=== PATIENT | male | born 1980 | race Caucasian/White ===

== ENCOUNTER 2019-08-15 18:26 | Inpatient (IN) ==
[2019-08-15] MEDS ORDERED: NS 1,000 ML IV ONE ×2 (18:56→20:39)
[2019-08-15] MEDS ORDERED: ASPIRIN PO ONE (19:02)
[2019-08-15] MEDS ORDERED: NITROGLYCERIN TOP ONE (19:03)
--- NOTE | 2019-08-15 19:09 | PROVIDER DOCUMENTATION ---
HPI-Chest Pain - General Chief Complaint: SEPSIS ALERT - D Stated Complaint: N/V, FEVER Time Seen by Provider: 08/15/19 18:41 Source: patient Allergies/Adverse Reactions: Patient Allergies Allergy/AdvReac Type Severity Reaction Status Date / Time iodine Allergy Unknown Verified 08/15/19 20:05 Home Medications: Home Medication List Medication Instructions Recorded Confirmed Last Taken Type Apixaban [Eliquis] 5 mg PO BID 08/15/19 08/15/19 Unknown History Insulin Degludec [Tresiba 200 unit SQ DAILY 08/15/19 08/15/19 Unknown History Flextouch U-200] - History of Present Illness-CP Nature of Presenting Problem: 38 yr old M, hx of DM, presenting with several days hx of chest pain, generalized muscle aches, and viral-symptoms. The pt was initially swabbed and tested positive for Flu b in [place] a week ago; he returned to [place] for work, and states he has not gotten better despite adequate supportive management (Tamiflu and Tylenol, Motrin). The pt also developed a central chest pain that he says felt like it traveled into his back. This acutely worsened today, and was accompanied by nausea and vomiting. Location: reports: central Chest Pain Radiation: reports: back Severity in ED: moderate Onset/Duration: 1 hour ago Timing: still present Context/Activities at Onset: reports: none Modifying Factors: improves with: nothing Associated Symptoms: reports: back pain, nausea, vomiting Aspirin Treatment Today: provided by ED Prior Chest Pain/Cardiac Workup: reports: no prior chest pain Similar Symptoms Previously?: No Review of Systems - Adult - REVIEW OF SYSTEMS - ADULT Constitutional: reports: no symptoms reported Eyes: reports: no symptoms reported Ears, Nose, Mouth & Throat: reports: no symptoms reported Cardiovascular: reports: see HPI, chest pain Respiratory: reports: no symptoms reported Gastrointestinal: reports: nausea, vomiting Genitourinary: reports: no symptoms reported Musculoskeletal: reports: no symptoms reported Neurological: reports: no symptoms reported Psychiatric: reports: no symptoms reported Endocrine: reports: no symptoms reported Past History - Adult - PAST MEDICAL HISTORY-ADULT Review of Records: reports: Nursing Assessment Review Major Childhood Illnesses: reports: denies history Cardiovascular: reports: denies history Endocrine/Immune: reports: Diabetes Diabetes Type: Type 2 - PRIOR SURGERIES/PROCEDURES Surgical/Procedure History: reports: none - SOCIAL HISTORY Smoking: denies Substance Use: denies Living Situation: family Physical Exam-General - PHYSICAL EXAM-ADULT Initial Vital Signs Reviewed: Yes - CONSTITUTIONAL General Appearance: alert, mild distress - EYES Eyes: PERRL/EOMI - HEAD, EARS, NOSE, MOUTH & THROAT HENMT: normocephalic/atraumatic, moist mucous membranes - RESPIRATORY Respiratory: lungs clear, normal breath sounds, other (chest tender to palpation centrally) - GASTROINTESTINAL (ABDOMEN) Abdominal Exam: normal bowel sounds, non tender, soft - SKIN Integumentary: normal color, normal turgor, warm/dry - NEUROLOGIC Neurologic: grossly normal - PSYCHIATRIC Psych/Mental Status: normal mood/affect, oriented x 3 - HEART Score HEART Score: History: Slightly Suspicious HEART Score: ECG: Normal HEART Score: Age: < or = 45 Years HEART Score: Risk Factors for Atherosclerotic Disease: 1 or 2 Risk Factors HEART Score: Troponin: < or = Normal Limit Total HEART Score:: 1 Progress - PLAN OF CARE/RESULTS Progress/Plan/Lab Results: Vital Signs - 8 hr 08/15/19 18:40 08/15/19 18:41 08/15/19 18:45 Temperature Pulse Rate Respiratory Rate Blood Pressure 141/90 O2 Sat by Pulse Oximetry 95 94 L 96 08/15/19 18:51 08/15/19 19:00 08/15/19 19:01 Temperature 98.1 F Pulse Rate 106 H 102 H 106 H Respiratory Rate 30 H 38 H 35 H Blood Pressure 141/90 146/119 O2 Sat by Pulse Oximetry 96 94 L 94 L 08/15/19 19:15 08/15/19 19:30 08/15/19 19:45 Temperature Pulse Rate 102 H 104 H 108 H Respiratory Rate 37 H 26 H Blood Pressure O2 Sat by Pulse Oximetry 95 95 97 08/15/19 19:57 08/15/19 19:59 08/15/19 20:00 Temperature Pulse Rate 105 H 102 H 92 H Respiratory Rate Blood Pressure 161/103 166/104 O2 Sat by Pulse Oximetry 96 96 96 08/15/19 20:01 08/15/19 20:02 08/15/19 20:03 Temperature Pulse Rate 88 86 84 Respiratory Rate Blood Pressure 160/85 151/84 146/92 O2 Sat by Pulse Oximetry 96 96 96 08/15/19 20:05 08/15/19 20:08 08/15/19 20:09 Temperature Pulse Rate 85 84 85 Respiratory Rate Blood Pressure 141/90 141/90 135/90 O2 Sat by Pulse Oximetry 96 96 95 08/15/19 20:12 08/15/19 20:14 08/15/19 20:15 Temperature Pulse Rate 88 85 85 Respiratory Rate Blood Pressure 126/81 112/85 133/77 O2 Sat by Pulse Oximetry 97 96 96 08/15/19 20:16 08/15/19 20:18 08/15/19 20:19 Temperature Pulse Rate 85 85 86 Respiratory Rate Blood Pressure 113/91 120/80 O2 Sat by Pulse Oximetry 96 96 96 08/15/19 20:21 08/15/19 20:23 08/15/19 20:25 Temperature Pulse Rate 86 88 87 Respiratory Rate Blood Pressure 120/80 125/74 117/77 O2 Sat by Pulse Oximetry 96 95 95 08/15/19 20:27 08/15/19 20:29 08/15/19 20:31 Temperature Pulse Rate 88 89 88 Respiratory Rate Blood Pressure 122/76 124/77 116/72 O2 Sat by Pulse Oximetry 95 96 96 08/15/19 20:32 08/15/19 20:33 08/15/19 20:35 Temperature Pulse Rate 89 90 89 Respiratory Rate Blood Pressure 116/72 122/74 O2 Sat by Pulse Oximetry 96 96 95 08/15/19 20:38 08/15/19 20:39 08/15/19 20:42 Temperature Pulse Rate 93 H 92 H 93 H Respiratory Rate Blood Pressure 110/74 118/73 127/76 O2 Sat by Pulse Oximetry 96 96 96 08/15/19 20:43 08/15/19 20:45 08/15/19 20:46 Temperature Pulse Rate 91 H 91 H 92 H Respiratory Rate Blood Pressure 108/73 120/71 O2 Sat by Pulse Oximetry 96 96 96 08/15/19 20:47 08/15/19 20:49 08/15/19 20:51 Temperature Pulse Rate 92 H 94 H 94 H Respiratory Rate Blood Pressure 113/72 118/81 107/70 O2 Sat by Pulse Oximetry 96 96 96 08/15/19 20:53 08/15/19 20:55 08/15/19 20:57 Temperature Pulse Rate 93 H 93 H 94 H Respiratory Rate Blood Pressure 138/86 145/89 134/87 O2 Sat by Pulse Oximetry 96 96 96 08/15/19 20:59 08/15/19 21:00 08/15/19 21:01 Temperature Pulse Rate 93 H 94 H 94 H Respiratory Rate Blood Pressure 141/85 126/91 O2 Sat by Pulse Oximetry 95 95 08/15/19 21:04 08/15/19 21:05 08/15/19 21:08 Temperature Pulse Rate 93 H 93 H 96 H Respiratory Rate Blood Pressure 103/74 127/76 140/94 O2 Sat by Pulse Oximetry 94 L 94 L 95 08/15/19 21:09 08/15/19 21:12 08/15/19 21:14 Temperature Pulse Rate 97 H 95 H 96 H Respiratory Rate Blood Pressure 152/91 148/101 134/104 O2 Sat by Pulse Oximetry 96 94 L 94 L 08/15/19 21:15 08/15/19 21:17 08/15/19 21:20 Temperature Pulse Rate 96 H 96 H 97 H Respiratory Rate Blood Pressure 142/88 128/92 134/77 O2 Sat by Pulse Oximetry 94 L 94 L 94 L 08/15/19 21:21 08/15/19 21:24 08/15/19 21:26 Temperature Pulse Rate 97 H 96 H 96 H Respiratory Rate Blood Pressure 133/83 133/84 124/83 O2 Sat by Pulse Oximetry 94 L 94 L 95 08/15/19 21:27 08/15/19 21:28 08/15/19 21:29 Temperature Pulse Rate 96 H 95 H 95 H Respiratory Rate Blood Pressure 134/85 125/83 O2 Sat by Pulse Oximetry 94 L 94 L 94 L 08/15/19 21:31 08/15/19 21:34 08/15/19 21:35 Temperature Pulse Rate 94 H 94 H 96 H Respiratory Rate Blood Pressure 132/92 134/82 126/88 O2 Sat by Pulse Oximetry 94 L 95 94 L 08/15/19 21:37 08/15/19 21:39 08/15/19 21:46 Temperature Pulse Rate 95 H 98 H 96 H Respiratory Rate Blood Pressure 155/84 128/101 126/80 O2 Sat by Pulse Oximetry 95 94 L 95 08/15/19 21:49 08/15/19 21:52 08/15/19 21:54 Temperature Pulse Rate 96 H 96 H 96 H Respiratory Rate Blood Pressure 141/86 133/86 131/103 O2 Sat by Pulse Oximetry 94 L 93 L 93 L 08/15/19 21:56 08/15/19 21:57 08/15/19 22:00 Temperature Pulse Rate 97 H 99 H 97 H Respiratory Rate Blood Pressure 136/103 130/91 141/91 O2 Sat by Pulse Oximetry 93 L 93 L 93 L 08/15/19 22:01 08/15/19 22:04 08/15/19 22:06 Temperature Pulse Rate 99 H 96 H 96 H Respiratory Rate Blood Pressure 149/80 161/79 130/92 O2 Sat by Pulse Oximetry 94 L 94 L 94 L 08/15/19 22:09 08/15/19 22:11 08/15/19 22:14 Temperature Pulse Rate 94 H 94 H 93 H Respiratory Rate Blood Pressure 141/91 147/85 133/84 O2 Sat by Pulse Oximetry 94 L 94 L 95 08/15/19 22:16 08/15/19 22:17 08/15/19 22:19 Temperature Pulse Rate 96 H 93 H 96 H Respiratory Rate Blood Pressure 139/78 133/90 152/90 O2 Sat by Pulse Oximetry 94 L 94 L 95 08/15/19 22:22 08/15/19 22:23 08/15/19 22:25 Temperature Pulse Rate 95 H 95 H 92 H Respiratory Rate Blood Pressure 139/83 147/86 138/86 O2 Sat by Pulse Oximetry 94 L 95 95 08/15/19 22:27 08/15/19 22:29 Temperature Pulse Rate 92 H 92 H Respiratory Rate Blood Pressure 149/84 147/86 O2 Sat by Pulse Oximetry 97 97 08/15/19 19:27 Influenza Screen - Final Nasopharyngeal Laboratory Results - last 24 hr 08/15/19 08/15/19 08/15/19 18:50 18:54 19:18 WBC RBC Hgb Hct MCV MCH MCHC RDW Std Deviation Plt Count MPV Neut % (Auto) Lymph % (Auto) [place] % (Auto) Eos % (Auto) Baso % (Auto) Neut # (Auto) Lymph # (Auto) [place] # (Auto) Eos # (Auto) Baso # (Auto) Segmented Neutrophils Band Neutrophils Lymphocytes Monocytes Eosinophils Specimen Type ARTERIAL Sample Site L RADIAL pH 7.10 L* pCO2 13 L* pO2 85 HCO3 6.8 L Base Excess -23.1 L Oxyhemoglobin 94.9 L ABG O2 Sat (Calculated) 24.0 H ABG O2 Saturation 96.1 ABG Carboxyhemoglobin 0.60 ABG Methemoglobin 0.8 Diony Test YES A-a O2 Difference 127.0 Total Hemoglobin 18.0 H Lactate 2.00 Liter Flow 3.0 Blood Gas Modality CAN[place]ULA FiO2 % 32.0 Sodium Potassium Chloride Carbon Dioxide Anion Gap BUN Creatinine Estimated GFR/1.73 m2 BUN/Creatinine Ratio Glucose POC Glucose 450 H Calculated Osmolality Calcium Phosphorus Magnesium Total Bilirubin AST ALT Alkaline Phosphatase Creatine Kinase Troponin T Total Protein Albumin Globulin Albumin/Globulin Ratio Urine Source Urine Color Urine Turbidity Urine pH Ur Specific [place] Urine Protein Ur Glucose (Stick) Ur Ketones (Stick) Urine Blood Urine Nitrite Urine Bilirubin Urobilinogen Dipstick Urine Leukocytes Urine WBC (Auto) Urine RBC (Auto) U Epithel Cells (Auto) Urine Bacteria (Auto) Urine Opiates Screen NONE DETECTED Ur Oxycodone Screen NONE DETECTED Ur Methadone, Qual NONE DETECTED Ur Barbiturates Screen NONE DETECTED Ur Phencyclidine Scrn NONE DETECTED Ur Amphetamines Screen NONE DETECTED U Benzodiazepines Scrn NONE DETECTED Urine Cocaine Screen NONE DETECTED U Cannabinoids Screen NONE DETECTED Acetone Level 08/15/19 08/15/19 08/15/19 19:51 19:51 19:51 WBC 14.48 H RBC 6.31 H Hgb 17.9 Hct 52.5 H MCV 83.2 MCH 28.4 MCHC 34.1 RDW Std Deviation 13.0 Plt Count 267 MPV 10.7 H Neut % (Auto) Not Reportable Lymph % (Auto) Not Reportable [place] % (Auto) Not Reportable Eos % (Auto) Not Reportable Baso % (Auto) Not Reportable Neut # (Auto) Not Reportable Lymph # (Auto) Not Reportable [place] # (Auto) Not Reportable Eos # (Auto) Not Reportable Baso # (Auto) Not Reportable Segmented Neutrophils 76 H Band Neutrophils 3 H Lymphocytes 13 L Monocytes 7 Eosinophils 1 Specimen Type Sample Site pH pCO2 pO2 HCO3 Base Excess Oxyhemoglobin ABG O2 Sat (Calculated) ABG O2 Saturation ABG Carboxyhemoglobin ABG Methemoglobin Diony Test A-a O2 Difference Total Hemoglobin Lactate Liter Flow Blood Gas Modality FiO2 % Sodium 129 L Potassium 5.6 H Chloride 88 L Carbon Dioxide 4 L Anion Gap 37 BUN 27 H Creatinine 1.4 H Estimated GFR/1.73 m2 57 BUN/Creatinine Ratio 19 Glucose 492 H* POC Glucose Calculated Osmolality 286 Calcium 8.4 L Phosphorus Magnesium Total Bilirubin 0.16 L AST 23 ALT 16 Alkaline Phosphatase 90 Creatine Kinase 44 Troponin T < 0.010 Total Protein 7.1 Albumin 4.1 Globulin 3.0 Albumin/Globulin Ratio 1.4 Urine Source Urine Color Urine Turbidity Urine pH Ur Specific [place] Urine Protein Ur Glucose (Stick) Ur Ketones (Stick) Urine Blood Urine Nitrite Urine Bilirubin Urobilinogen Dipstick Urine Leukocytes Urine WBC (Auto) Urine RBC (Auto) U Epithel Cells (Auto) Urine Bacteria (Auto) Urine Opiates Screen Ur Oxycodone Screen Ur Methadone, Qual Ur Barbiturates Screen Ur Phencyclidine Scrn Ur Amphetamines Screen U Benzodiazepines Scrn Urine Cocaine Screen U Cannabinoids Screen Acetone Level 08/15/19 08/15/19 08/15/19 19:51 20:39 22:17 WBC RBC Hgb Hct MCV MCH MCHC RDW Std Deviation Plt Count MPV Neut % (Auto) Lymph % (Auto) [place] % (Auto) Eos % (Auto) Baso % (Auto) Neut # (Auto) Lymph # (Auto) [place] # (Auto) Eos # (Auto) Baso # (Auto) Segmented Neutrophils Band Neutrophils Lymphocytes Monocytes Eosinophils Specimen Type Sample Site pH pCO2 pO2 HCO3 Base Excess Oxyhemoglobin ABG O2 Sat (Calculated) ABG O2 Saturation ABG Carboxyhemoglobin ABG Methemoglobin Diony Test A-a O2 Difference Total Hemoglobin Lactate Liter Flow Blood Gas Modality FiO2 % Sodium Potassium Chloride Carbon Dioxide Anion Gap BUN Creatinine Estimated GFR/1.73 m2 BUN/Creatinine Ratio Glucose POC Glucose 414 H Calculated Osmolality Calcium Phosphorus 4.0 Magnesium 2.2 Total Bilirubin AST ALT Alkaline Phosphatase Creatine Kinase Troponin T Total Protein Albumin Globulin Albumin/Globulin Ratio Urine Source CLEAN CATCH Urine Color YELLOW Urine Turbidity CLEAR Urine pH 5.5 Ur Specific [place] 1.033 Urine Protein 70 A Ur Glucose (Stick) >1000 A Ur Ketones (Stick) >150 A Urine Blood SMALL A Urine Nitrite NEGATIVE Urine Bilirubin NEGATIVE Urobilinogen Dipstick NORMAL Urine Leukocytes NEGATIVE Urine WBC (Auto) <10 Urine RBC (Auto) <10 U Epithel Cells (Auto) <10 Urine Bacteria (Auto) NEGATIVE Urine Opiates Screen Ur Oxycodone Screen Ur Methadone, Qual Ur Barbiturates Screen Ur Phencyclidine Scrn Ur Amphetamines Screen U Benzodiazepines Scrn Urine Cocaine Screen U Cannabinoids Screen Acetone Level LARGE A Orders Category Date Time Status Cardiac Monitoring DIRECTED Care 08/15/19 18:56 Active FSBS/Accucheck Result Q1H Care 08/15/19 22:17 Active IV Insertion ORDERED Care 08/15/19 18:56 Completed Notify MD of + Sepsis Screen NOW Care 08/15/19 18:56 Active Notify Physician As Ordered Care 08/15/19 18:56 Active Saline Loc NOW Care 08/15/19 18:57 Active Vital Signs Order Q1H Care 08/15/19 18:57 Active CHEST-1 VIEW [RAD] Stat Exams 08/15/19 18:56 Completed ABG [RESP] Routine Lab 08/15/19 19:18 Completed ABG [RESP] Routine Lab 08/15/19 22:42 Ordered ACETONE SERUM [CHEM] Stat Lab 08/15/19 19:51 Completed BLOOD CULTURE [BLDCUL] Stat Lab 08/15/19 19:27 Results CBC WITH DIFF [HEME] Stat Lab 08/15/19 19:51 Completed CK PROFILE [SP CHEM] Stat Lab 08/15/19 19:51 Completed COMPREHENSIVE METABOLIC PANEL [CHEM] Stat Lab 08/15/19 19:51 Completed INFLUENZA SCREEN A/B Stat Lab 08/15/19 19:27 Completed LACTATE, PLASMA [CHEM] Lab 08/15/19 22:30 Ordered LACTATE, PLASMA [CHEM] Lab 08/16/19 01:00 Uncollected MAGNESIUM [CHEM] Stat Lab 08/15/19 19:51 Completed PHOSPHORUS [CHEM] Stat Lab 08/15/19 19:51 Completed PROTIME WITH INR [COAG] Stat Lab 08/15/19 19:44 Ordered PTT [COAG] Stat Lab 08/15/19 19:44 Ordered TROPONIN T Stat Lab 08/15/19 19:51 Completed TROPONIN T Stat Lab 08/15/19 20:31 Ordered URINALYSIS W/POSS RFLX CULT [URINALYSIS] Stat Lab 08/15/19 20:39 Completed URINE DRUG SCREEN Stat Lab 08/15/19 18:54 Completed 0.9% Sodium Chloride Inj [Ns] 1,000 ml Med 08/15/19 20:39 Discontinued IV 500 mls/hr 0.9% Sodium Chloride Inj [Ns] 1,000 ml Med 08/15/19 18:56 Discontinued IV 999 mls/hr 0.9% Sodium Chloride Inj [Ns] 100 ml Med 08/15/19 20:45 Active Insulin Human Regular [Humulin R] 100 unit IV 6 mls/hr Apixaban [Eliquis] Med 08/16/19 09:00 Ordered 5 mg PO BID Aspirin Med 08/15/19 19:02 Discontinued 325 mg PO NOW ONE D5 1/ Ns + KCl 20 Meq 1,000 ml Med 08/15/19 20:32 Discontinued IV 125 mls/hr Insulin Human Regular [Humulin R] Med 08/15/19 19:51 Discontinued 10 unit IV NOW ONE Levofloxacin 750 mg/D5w [Levaquin 750 mg/D5w] Med 08/15/19 20:17 Discontinued 750 mg in 150 ml IV NOW Metoprolol [Lopressor] Med 08/15/19 19:13 Discontinued 5 mg IV NOW ONE Morphine Med 08/15/19 19:59 Discontinued 4 mg IV NOW ONE Morphine Med 08/15/19 19:52 Discontinued 5 mg IV NOW ONE Nitroglycerin Med 08/15/19 19:03 Discontinued 1 inch TOP NOW ONE Oxygen Device Stat Oth 08/15/19 18:56 Active EKG [EKG] Routine Ther 08/15/19 18:57 Draft Transfer/Admit Order [TRANSFER] Routine Transfer 08/15/19 21:50 Ordered Pt is in DKA, protocol initiated; also tested positive for flu A, also has possible pneumonia developing; has spoken to Dr. Hale who accepts the case for additional management. Result Diagrams: 08/15/19 19:51 08/15/19 19:51 - XRAY 1 XRAY Study: Chest Impression: See EMR Report XRAY Interpretation: possible infiltrate in RLL - CONSULTS/PCP/HOSPITALIST Notification Consult Disposition: Admit Departure - Departure Date of Disposition Decision: 08/15/19 Time of Disposition Decision: 21:48 DIAGNOSIS: DKA (diabetic ketoacidoses) Qualifiers: Diabetes mellitus type: type 2 Diabetes mellitus complication detail: without coma Qualified Code(s): E11.10 - Type 2 diabetes mellitus with ketoacidosis without coma Leukocytosis Qualifiers: Leukocytosis type: bandemia Qualified Code(s): D72.825 - Bandemia Disposition: ADMITTED INPATIENT 09 Certified Medical Emergency: Emergent Condition: Fair Referrals and Follow-Ups: None,PCP [Primary Care Provider] - - Critical Care Note This patient required my direct & personal management of CC.: No Attestation - Physician/ KARLA Attestation Patient care was provided by Advanced Practice Provider:: No The physician spent face to face time with patient:: Yes Advanced Practice Provider documentation review:: Supervising physician onsite and consulted in the evaluation and care of this patient. The physician did have a face to face encounter with the patient.
[2019-08-15] MEDS ORDERED: LOPRESSOR IV ONE (19:13)
[2019-08-15 19:28] LABS: ALLEN TEST YES; BE -23.1 mmoll (-3.0-3.0); BLOOD TYPE ARTERIAL; HCO3-(ACT) 6.8 mmoll (20.0-26.0); METHB 0.8 % (0.0-1.5); O2HB 94.9 % (95.0-99.0); PO2(98.6) 85 mmHg (60-100); SAMPLE BLOOD; SAO2 96.1 % (95.0-100.0)
--- NOTE | 2019-08-15 19:28 | Diag Imaging Result Doc PS360 ---
EXAM: CHEST-1 VIEW - 08/15/2019 HISTORY: possible sepsis TECHNIQUE: Portable AP spine abdomen COMPARISON: None. FINDINGS: Heart size is within normal limits. There is ill-defined infiltrate or atelectasis at the base. The remainder of the lungs appear essentially clear. There is no pleural effusion or pneumothorax identified. There is air noted beneath the left hemidiaphragm which presumably is located in fundus of stomach. IMPRESSION: Ill-defined infiltrate or atelectasis at right base. Electronically signed by Ke Delcid 08/15/2019 7:26 PM
[2019-08-15 19:30] LABS: MODALITY CANNULA; PCO2(98.6) 13 mmHg (35-45)
[2019-08-15] MEDS ORDERED: HUMULIN R IV ONE (19:51)
[2019-08-15] MEDS ORDERED: MORPHINE IV ONE ×2 (19:52→19:59)
[2019-08-15 20:14] LABS: HEMATOCRIT 52.5 % (42.0-52.0); HEMOGLOBIN 17.9 g/dL (14.0-18.0); MCH 28.4 PG (27-31); MCHC 34.1 g/dL (33-37); MCV 83.2 FL (81-99); MPV 10.7 FL (7.4-10.4); PLT 267 X1000 (130-400); RBC 6.31 XMIL (4.7-6.1); WBC 14.48 X1000 (4.8-10.8)
[2019-08-15] MEDS ORDERED: LEVAQUIN 750 MG/D5W 750 MG/150 ML IVPB IV ONE (20:17)
[2019-08-15 20:23] LABS: ACETONE SERUM LARGE (NEGATIVE)
[2019-08-15 20:27] LABS: ALB/GLOB RATIO 1.4; ALBUMIN 4.1 g/dL (3.5-5.0); CALCIUM 8.4 mg/dL (8.8-10.2); CREATININE 1.4 mg/dL (0.7-1.2); POTASSIUM 5.6 mmol/L (3.5-5.1); TOTAL BILIRUBIN 0.16 mg/dL (0.20-1.00); TOTAL PROTEIN 7.1 g/dL (6.3-8.3)
[2019-08-15 20:29] LABS: MAGNESIUM 2.2 mg/dL (1.5-2.7)
[2019-08-15 20:31] LABS: BANDS 3 % (0-1); EOS 1 % (1-10); LYMPHS 13 % (21-51); MONO 7 % (1-9); SEGS 76 % (42-75)
[2019-08-15] MEDS ORDERED: D5 1/2 NS + KCL 20 MEQ 1,000 ML IV ONE (20:32)
[2019-08-15 20:44] LABS: URINE SOURCE CLEAN CATCH
[2019-08-15] MEDS ORDERED: HUMULIN R 100 UNIT in NS 100 ML IV SCH ×2 (20:45→23:55)
[2019-08-15 20:49] LABS: BILIRUBIN URINE NEGATIVE (NEGATIVE); BLOOD URINE SMALL (NEGATIVE); COLOR YELLOW; GLUCOSE URINE >1000 mg/dL (NEGATIVE); KETONE URINE >150 mg/dL (NEGATIVE); LEUKOCYTES URINE NEGATIVE (NEGATIVE); NITRITE URINE NEGATIVE (NEGATIVE); PH URINE 5.5; PROTEIN URINE 70 mg/dL (NEGATIVE); SP GRAVITY URINE 1.033; TURBIDITY URINE CLEAR (CLEAR); UROBILINOGEN URINE NORMAL (NORMAL)
[2019-08-15 20:51] LABS: UR EPITHELIAL CELLS <10 /HPF (<10); URINE BACTERIA NEGATIVE /HPF; URINE RBC <10 /HPF (<10); URINE WBC <10 /HPF (<10)
--- NOTE | 2019-08-15 21:07 | EKG Report ---
Test Performed on : 08/15/2019 7:05:11 PM Test Reason : chest pain/sob Blood Pressure : / mmHG Vent. Rate : 104 BPM Atrial Rate : 104 BPM P-R Int : 150 ms QRS Dur : 094 ms QT Int : 358 ms P-R-T Axes : 040 099 013 degrees QTc Int : 470 ms Sinus tachycardia. Rightward axis Borderline ECG When compared with ECG of 15-AUG-2019 19:00, (Unconfirmed) QT has shortened Unconfirmed Result
[2019-08-15 21:19] LABS: UR AMPHETAMINES QUAL NONE DETECTED (NONE DETECT); UR BARBITUATES QUAL NONE DETECTED (NONE DETECT); UR BENZODIAZEPIN QUAL NONE DETECTED (NONE DETECT); UR CANNABINOIDS QUAL NONE DETECTED (NONE DETECT); UR COCAINE QUAL NONE DETECTED (NONE DETECT); UR METHADONE QUAL NONE DETECTED (NONE DETECT); UR OPIATES QUAL NONE DETECTED (NONE DETECT); UR OXYCODONE QUAL NONE DETECTED (NONE DETECT); UR PCP QUAL NONE DETECTED (NONE DETECT)
[2019-08-15] MEDS ORDERED: HUMULIN R 100 UNIT in NS 100 ML IV ONE (22:00)
[2019-08-15 23:13] LABS: ALLEN TEST YES; BE -22.3 mmoll (-3.0-3.0); BLOOD TYPE ARTERIAL; HCO3-(ACT) 7.4 mmoll (20.0-26.0); METHB 0.6 % (0.0-1.5); O2(CT) 22.9 mL/dL (15.0-23.0); O2HB 95.3 % (95.0-99.0); PO2(98.6) 82 mmHg (60-100); SAMPLE BLOOD; SAO2 96.5 % (95.0-100.0); THB 17.1 g/dL (11.5-17.4)
[2019-08-15 23:16] LABS: MODALITY CANNULA; PCO2(98.6) 15 mmHg (35-45); pH(98.6) 7.11 (7.35-7.45)
[2019-08-15] MEDS ORDERED: POTASSIUM CHLORIDE 40 MEQ/SWI 40 MEQ/100 ML IVPB IV PRN (23:55)
[2019-08-15] MEDS ORDERED: D5 1/2 NS + KCL 10 MEQ 1,000 ML IV PRN (23:55)
[2019-08-15] MEDS ORDERED: SODIUM PHOSPHATE 30 MMOL in D5W 250 ML IV PRN (23:55)
[2019-08-15] MEDS ORDERED: D50W SYRINGE IV PRN (23:55)
[2019-08-15] MEDS ORDERED: MAGNESIUM SULFATE 2 GM/S.W.I. 2 GM/50 ML IVPB IV PRN (23:55)
--- NOTE | 2019-08-15 23:58 | HISTORY AND PHYSICAL ---
CHIEF COMPLAINT: Fever, nausea, vomiting. HISTORY OF PRESENT ILLNESS: A 38-year-old male with a history of diabetes mellitus presents with several days of general muscle pain, fever, nausea, vomiting. Apparently was initially tested for influenza B a week ago in [place]. He took Tamiflu, Tylenol and Motrin. He returned to [place] for work. States that he has not gotten better despite taking medications. For the last 4 days he stated that he was unable to get out of the bed and has not taken his insulin. He also has a history of blood clots and takes Eliquis twice daily. On arrival to the emergency room, he had initial laboratory data obtained which showed the patient to be in DKA. He states that he has been in DKA once before. His influenza screen was influenza A positive and his chest x-ray showed a right lower lobe infiltrate. He will be admitted to ICU for further evaluation and treatment. PAST MEDICAL HISTORY: See HPI. PREVIOUS SURGICAL HISTORY: Knee surgery. SOCIAL HISTORY: lives in [place]. He has been here for work. He has been staying alone. No tobacco, alcohol or illicit drugs. FAMILY HISTORY: Father has hypertension. ALLERGIES: Iodine. HOME MEDICATIONS: Eliquis 5 mg p.o. b.i.d. and Tresiba 200 units subcutaneous daily. REVIEW OF SYSTEMS: Fourteen-point review of systems conducted with the patient. Positive for polydipsia, polyphagia or polyuria, nausea, vomiting, fever, chills, body aches and central chest pain. All other pertinent positives were reviewed and negative. PHYSICAL EXAMINATION: VITAL SIGNS: Temperature 98.1, pulse 92, respirations 25, blood pressure 147/86, oxygen saturation 97% on 2 L nasal cannula. GENERAL: Ill-appearing 38-year-old male lying in the ER stretcher. Alert and oriented times 3, answers all questions appropriately. He is in no acute distress. HEENT: Head is atraumatic, normocephalic. Pupils equal, round, reactive to light. Extraocular eye movement is intact. Sclera is anicteric. Conjunctiva is pink. Oral mucosa is dry. NECK: Supple. No JVD. No thyromegaly. Trachea is midline. No cervical lymphadenopathy. CARDIAC: S1, S2 appreciated. No murmurs, gallops, rubs. LUNGS: Clear to auscultation bilaterally. No rhonchi, wheezes, rales. Symmetric rise and fall with respirations. ABDOMEN: Soft, nondistended, nontender. Bowel sounds present all 4 quadrants, normoactive. No pulsatile mass. No organomegaly. EXTREMITIES: No clubbing, cyanosis or edema. Two-plus pedal pulses bilaterally. GENITOURINARY: No bladder distention. Patient voids. Otherwise deferred. NEUROLOGICAL: Alert and oriented times 3. Cranial nerves 2 through 12 appear to be grossly intact. DIAGNOSTIC DATA: Chest x-ray shows a right lower lobe infiltrate versus atelectasis. Influenza screen was positive for influenza A. Blood cultures are pending. LABORATORY DATA: WBC 14.48. Hemoglobin 17.9. Hematocrit 52.5. Platelet count 267. Band neutrophils 3. ABG: pH 7.10, pCO2 of 13, PO2 of 85, bicarbonate 6.8. Sodium 129. Potassium 5.6. Chloride 88. Carbon dioxide 4. BUN 27. Creatinine 1.4. Glucose 492. Urine: Greater than 1000 glucose, greater than 150 ketones, acetone level is large. ASSESSMENT: 1. Diabetic ketoacidosis. 2. Influenza A. 3. History of blood clots with Eliquis anticoagulation. 4. Volume depletion. 5. Right lower lobe pneumonia. PLAN: Place the patient in ICU. Laboratory data and insulin per DKA protocol. Q.1 hour fingersticks. We will continue his Eliquis 5 mg p.o. b.i.d. Morphine as needed for pain. Levaquin 750 IV q.24 hours. We will give patient Tamiflu 75 mg p.o. b.i.d. We will check labs regularly while patient remains in DKA. Further recommendations per patient clinical course. Dictated by JAYLEN Plata for Song Hale MD I have performed a face to face diagnostic evaluation. Labs/xrays- reviewed. Exam- Chest- rhonchi, CV- regular. A/P- DKA- Admit, NPO, Insulin drip and IV fluids. Dr. Hale cc: JAYLEN Plata MD [facility]
[2019-08-16] MEDS: TAMIFLU PO SCH ×3 (00:39→21:26)
[2019-08-16 00:54] LABS: INR 1.2; PROTIME 15.4 Seconds (11.0-16.0)
[2019-08-16 01:04] LABS: HEMOGLOBIN A1C 12.4 % (4.8-6.0)
[2019-08-16 01:28] LABS: AGAP 29; BUN 28 mg/dL (8-22); CALCIUM 7.8 mg/dL (8.8-10.2); CHLORIDE 93 mmol/L (98-107); COSMO 271; ESTIMATED GFR > 60; GLUCOSE 320 mg/dL (70-104); PHOSPHORUS 2.1 mg/dL (2.7-4.5); POTASSIUM 4.6 mmol/L (3.5-5.1); SODIUM 126 mmol/L (136-145); TCO2 4 mmol/L (25-35)
[2019-08-16] MEDS: NS 1,000 ML IV SCH ×7 (01:37→19:14)
[2019-08-16 04:22] LABS: ALLEN TEST YES; BE -17.2 mmoll (-3.0-3.0); BLOOD TYPE ARTERIAL; HCO3-(ACT) 11.4 mmoll (20.0-26.0); METHB 0.8 % (0.0-1.5); O2(CT) 21.1 mL/dL (15.0-23.0); O2HB 94.4 % (95.0-99.0); PCO2(98.6) 20 mmHg (35-45); PO2(98.6) 77 mmHg (60-100); SAMPLE BLOOD; SAO2 95.7 % (95.0-100.0); THB 15.9 g/dL (11.5-17.4); pH(98.6) 7.22 (7.35-7.45)
[2019-08-16 04:24] LABS: MODALITY CANNULA
[2019-08-16] MEDS ORDERED: POTASSIUM CHLORIDE 20% LIQUID PO PRN (04:47)
[2019-08-16] MEDS ORDERED: POTASSIUM CHLORIDE 10% LIQUID PO PRN (04:54)
[2019-08-16 05:44] LABS: ESTIMATED GFR > 60
[2019-08-16 05:55] LABS: AGAP 23; BUN 23 mg/dL (8-22); CALCIUM 7.4 mg/dL (8.8-10.2); CHLORIDE 97 mmol/L (98-107); COSMO 269; CREATININE 0.9 mg/dL (0.7-1.2); GLUCOSE 208 mg/dL (70-104); MAGNESIUM 1.9 mg/dL (1.5-2.7); PHOSPHORUS 1.3 mg/dL (2.7-4.5); POTASSIUM 4.2 mmol/L (3.5-5.1); SODIUM 129 mmol/L (136-145); TCO2 9 mmol/L (25-35)
[2019-08-16] MEDS: ZOFRAN IV PRN ×2 (07:19→17:28)
[2019-08-16] MEDS: ELIQUIS PO SCH ×2 (09:26→21:26)
[2019-08-16] MEDS: ROCEPHIN 1 GM in NS 50 ML IV SCH (09:27)
[2019-08-16 10:12] LABS: ESTIMATED GFR > 60
[2019-08-16 10:15] LABS: BASO% 0.9 % (0.0-0.8); HEMATOCRIT 43.7 % (42.0-52.0); HEMOGLOBIN 15.2 g/dL (14.0-18.0); IMM GRAN# 0.04 X1000 (0.0-0.04); IMM GRAN% 0.3 % (0.0-0.5); LYMPH# 2.43 X1000 (1.2-3.4); LYMPH% 20.8 % (20.5-51.1); MCH 28.4 PG (27-31); MCHC 34.8 g/dL (33-37); MCV 81.7 FL (81-99); MONO# 1.29 X1000 (0.11-0.59); MPV 10.2 FL (7.4-10.4); NEUT# 7.83 X1000 (1.4-6.5); PLT 202 X1000 (130-400); RBC 5.35 XMIL (4.7-6.1); RDW 12.8 % (11.5-14.5); WBC 11.69 X1000 (4.8-10.8)
[2019-08-16 10:21] LABS: AGAP 17; BUN 19 mg/dL (8-22); CALCIUM 7.4 mg/dL (8.8-10.2); CHLORIDE 99 mmol/L (98-107); COSMO 270; CREATININE 0.8 mg/dL (0.7-1.2); GLUCOSE 251 mg/dL (70-104); SODIUM 129 mmol/L (136-145); TCO2 13 mmol/L (25-35)
[2019-08-16] MEDS: MORPHINE IV PRN ×2 (10:30→17:28)
[2019-08-16 11:17] LABS: BANDS 4 % (0-1); LYMPHS 20 % (21-51); SEGS 76 % (42-75)
[2019-08-16] MEDS: POTASSIUM CHLORIDE 20 MEQ/SWI 20 MEQ/100 ML IVPB IV PRN ×2 (12:00→19:45)
[2019-08-16 12:55] LABS: AGAP 17; BUN 15 mg/dL (8-22); CALCIUM 7.3 mg/dL (8.8-10.2); CHLORIDE 100 mmol/L (98-107); COSMO 274; CREATININE 0.9 mg/dL (0.7-1.2); ESTIMATED GFR > 60; GLUCOSE 251 mg/dL (70-104); PHOSPHORUS 1.1 mg/dL (2.7-4.5); POTASSIUM 4.1 mmol/L (3.5-5.1); SODIUM 132 mmol/L (136-145); TCO2 15 mmol/L (25-35)
[2019-08-16] MEDS: D5 1/2 NS + KCL 10 MEQ 1,000 ML IV SCH ×2 (13:17→23:58)
[2019-08-16] MEDS ORDERED: SODIUM PHOSPHATE 40 MMOL in NS 250 ML IV ONE (17:00)
[2019-08-16] MEDS: NEUTRA-PHOS PO SCH ×2 (17:02→21:31)
[2019-08-16] MEDS ORDERED: LASIX IV ONE (17:36)
[2019-08-16 17:40] LABS: AGAP 14; BUN 13 mg/dL (8-22); CALCIUM 7.4 mg/dL (8.8-10.2); CHLORIDE 102 mmol/L (98-107); COSMO 271; CREATININE 0.9 mg/dL (0.7-1.2); ESTIMATED GFR > 60; GLUCOSE 214 mg/dL (70-104); MAGNESIUM 2.1 mg/dL (1.5-2.7); PHOSPHORUS 0.9 mg/dL (2.7-4.5); SODIUM 132 mmol/L (136-145); TCO2 16 mmol/L (25-35)
[2019-08-16] MEDS ORDERED: LEVAQUIN 750 MG in NS 150 ML IV SCH (18:00)
[2019-08-16 18:09] LABS: ALLEN TEST YES; BE -6.8 mmoll (-3.0-3.0); BLOOD TYPE ARTERIAL; HCO3-(ACT) 19.6 mmoll (20.0-26.0); METHB 1.1 % (0.0-1.5); O2(CT) 20.5 mL/dL (15.0-23.0); O2HB 95.3 % (95.0-99.0); PCO2(98.6) 26 mmHg (35-45); PO2(98.6) 84 mmHg (60-100); SAMPLE BLOOD; SAO2 96.9 % (95.0-100.0); THB 15.3 g/dL (11.5-17.4)
[2019-08-16 18:14] LABS: MODALITY CANNULA
--- NOTE | 2019-08-16 18:14 | Diag Imaging Result Doc PS360 ---
EXAM: CHEST-PORTABLE HISTORY: increased oxygen requirement TECHNIQUE: Single view COMPARISON: 08/15/2019 FINDINGS: Poor inspiratory effort. Heart is mildly prominent. The vessels are distended. There is a small left pleural effusion and there may be a small right effusion. There are infiltrates in the left base. IMPRESSION: Interval worsening Electronically signed by Manpreet Treviño 08/16/2019 6:11 PM
--- NOTE | 2019-08-16 18:22 | PROGRESS NOTE ---
DATE: 08/16/2019 SUBJECTIVE: The patient reports still feeling sick. No other issues noted as per nursing staff overnight. OBJECTIVE: Vital signs: Temperature 97.7 degrees, heart rate 90, respiratory rate 20, blood pressure 126/74, O2 saturation 94% on 4 L nasal cannula. On general examination, this is an ill- appearing 38-year-old male, lying in bed in no acute distress.Cardiovascular: S1, S2 heard. No murmurs, gallops or rubs. Regular rate and rhythm. Respiratory: Clear bilaterally to auscultation. No work of breathing or using accessory muscles. Abdomen is soft, nontender to palpation. Bowel sounds present. No organomegaly. Extremities: No clubbing, cyanosis or edema. Peripheral pulses present in both legs. Neurological: The patient is alert and oriented x3. Moves all 4 extremities. LABORATORY DATA: CBC is still pending. ABG drawn at 3:45 this morning showed pH 7.32, with pCO2 of 20, pO2 of 77. BMP: Sodium 129, potassium 4.2, with creatinine 0.9, glucose 208. Hemoglobin A1c is 12.6 Phosphorus is 1.3. ASSESSMENT AND PLAN: 1. Diabetic ketoacidosis. Patient is on insulin drip. Last arterial blood gas and BMP reveals that he is still acidotic. At this point we will continue current management. 2. Right lower lobe pneumonia. Patient is on Levaquin. We will add ceftriaxone to his current treatment in order to help him recover faster from this infection. 3. History of blood clots, on Eliquis. We will continue with current management. 4. Influenza type A. We will continue with Tamiflu. 5. Disposition: We will continue to monitor this patient closely here in the intensive care unit. cc: MD TODD Brooks
[2019-08-16 20:59] LABS: AGAP 15; BUN 13 mg/dL (8-22); CALCIUM 7.5 mg/dL (8.8-10.2); CHLORIDE 100 mmol/L (98-107); COSMO 272; CREATININE 0.8 mg/dL (0.7-1.2); ESTIMATED GFR > 60; GLUCOSE 202 mg/dL (70-104); MAGNESIUM 1.8 mg/dL (1.5-2.7); PHOSPHORUS 2.8 mg/dL (2.7-4.5); POTASSIUM 3.1 mmol/L (3.5-5.1); SODIUM 133 mmol/L (136-145); TCO2 18 mmol/L (25-35)
[2019-08-17 01:14] LABS: MAGNESIUM 1.8 mg/dL (1.5-2.7); PHOSPHORUS 2.2 mg/dL (2.7-4.5)
[2019-08-17 01:17] LABS: AGAP 13; BUN 12 mg/dL (8-22); CALCIUM 7.1 mg/dL (8.8-10.2); CHLORIDE 100 mmol/L (98-107); COSMO 268; CREATININE 0.8 mg/dL (0.7-1.2); ESTIMATED GFR > 60; GLUCOSE 238 mg/dL (70-104); POTASSIUM 3.5 mmol/L (3.5-5.1); SODIUM 130 mmol/L (136-145); TCO2 17 mmol/L (25-35)
[2019-08-17] MEDS: NS 1,000 ML IV SCH ×3 (02:47→13:05)
[2019-08-17 04:42] LABS: BASO# 0.02 X1000 (0.0-0.2); BASO% 0.3 % (0.0-0.8); HEMATOCRIT 40.3 % (42.0-52.0); HEMOGLOBIN 14.3 g/dL (14.0-18.0); IMM GRAN# 0.02 X1000 (0.0-0.04); IMM GRAN% 0.3 % (0.0-0.5); LYMPH# 1.34 X1000 (1.2-3.4); LYMPH% 16.8 % (20.5-51.1); MCH 28.5 PG (27-31); MCHC 35.5 g/dL (33-37); MCV 80.4 FL (81-99); MONO# 0.89 X1000 (0.11-0.59); MONO% 11.1 % (1.7-9.3); MPV 10.1 FL (7.4-10.4); NEUT# 5.73 X1000 (1.4-6.5); NEUT% 71.5 % (42.2-75.2); PLT 190 X1000 (130-400); RBC 5.01 XMIL (4.7-6.1); RDW 12.8 % (11.5-14.5)
[2019-08-17 05:03] LABS: MAGNESIUM 1.8 mg/dL (1.5-2.7)
[2019-08-17 05:04] LABS: AGAP 15; BUN 12 mg/dL (8-22); CALCIUM 7.2 mg/dL (8.8-10.2); CHLORIDE 100 mmol/L (98-107); COSMO 270; CREATININE 0.6 mg/dL (0.7-1.2); ESTIMATED GFR > 60; GLUCOSE 170 mg/dL (70-104); SODIUM 133 mmol/L (136-145); TCO2 18 mmol/L (25-35)
[2019-08-17] MEDS: ZOFRAN IV PRN (05:25)
[2019-08-17] MEDS: POTASSIUM CHLORIDE 20 MEQ/SWI 20 MEQ/100 ML IVPB IV SCH ×2 (05:28→07:41)
[2019-08-17] MEDS: NEUTRA-PHOS PO SCH ×4 (05:34→21:46)
[2019-08-17] MEDS: MORPHINE IV PRN (06:01)
[2019-08-17 07:05] LABS: BANDS 6 % (0-1); LYMPHS 20 % (21-51); MONO 10 % (1-9); SEGS 64 % (42-75)
[2019-08-17] MEDS: D5 1/2 NS + KCL 10 MEQ 1,000 ML IV SCH (07:46)
[2019-08-17] MEDS: ROCEPHIN 1 GM in NS 50 ML IV SCH (08:01)
[2019-08-17] MEDS: ELIQUIS PO SCH ×2 (08:02→21:46)
[2019-08-17] MEDS: TAMIFLU PO SCH ×2 (08:02→21:46)
[2019-08-17 09:01] LABS: MAGNESIUM 1.5 mg/dL (1.5-2.7); PHOSPHORUS 1.6 mg/dL (2.7-4.5)
[2019-08-17] MEDS ORDERED: G.I. COCKTAIL PO ONE (09:10)
[2019-08-17 09:23] LABS: AGAP 12; BUN 10 mg/dL (8-22); CHLORIDE 100 mmol/L (98-107); COSMO 269; CREATININE 0.6 mg/dL (0.7-1.2); ESTIMATED GFR > 60; GLUCOSE 226 mg/dL (70-104); POTASSIUM 4.8 mmol/L (3.5-5.1); SODIUM 131 mmol/L (136-145); TCO2 19 mmol/L (25-35)
--- NOTE | 2019-08-17 09:58 | PROGRESS NOTE ---
DATE: 08/17/2019 SUBJECTIVE: Patient reports epigastric pain for last 48 hours. Reports some nausea. No other complaints reported. He reports breathing better. OBJECTIVE: Vital Signs: Temperature degrees, heart rate 75, respiratory rate 20, blood pressure 124/83, O2 saturation 98% on 6 L nasal cannula. General: This is an ill-appearing 38-year-old, male, lying in bed, in no acute distress. Cardiovascular: S1, S2 heard. No murmurs, gallops, or rubs. Regular rate and rhythm. Respiratory: Coarse breath sounds in both pulmonary bases. Patient not using any accessory muscles or having work of breathing. Abdomen: Soft. Tender to palpation in the epigastric area. Bowel sounds present. No organomegaly. Extremities: No clubbing, cyanosis, or edema. Peripheral pulses present in both legs. Neurological: Patient is alert and oriented x3. Moves 4 extremities. LABORATORY DATA: White cell count 8.0, hemoglobin 14.3, hematocrit 40.3, platelets 198,000. Sodium 131 with anion gap 12, bicarbonate 19 and glucose 226. ASSESSMENT/PLAN: 1. Diabetic ketoacidosis. Patient continues to be on insulin drip. According to the last BMP, I think we can stop the drip, start sliding scale insulin and Lantus. 2. Right lower lobe pneumonia. Patient is on ceftriaxone and Levaquin. He continues to require high amounts of oxygen. The x-ray from yesterday showing interval worsening, so in order to have a better visualization of the lung anatomy, we are going to do a CT of the chest with contrast and we will go from there. 3. History of blood clots. Patient is on Eliquis. We will continue with the same management. 4. Influenza type A. We will continue with Tamiflu. 5. Disposition. We will continue to monitor this patient closely here in the intensive care unit. cc: Salty Wei MD
[2019-08-17] MEDS ORDERED: SODIUM PHOSPHATE 35 MMOL in NS 250 ML IV ONE (10:00)
[2019-08-17] MEDS ORDERED: POTASSIUM CHLORIDE 60 MEQ in NS 500 ML IV ONE (10:00)
[2019-08-17] MEDS: PROTONIX IV SCH ×2 (10:13→21:45)
[2019-08-17] MEDS: SODIUM CHLORIDE 0.9% INJ SCH ×2 (10:13→21:45)
[2019-08-17 10:27] LABS: AGAP 12; BUN 9 mg/dL (8-22); CHLORIDE 99 mmol/L (98-107); COSMO 264; CREATININE 0.6 mg/dL (0.7-1.2); ESTIMATED GFR > 60; GLUCOSE 180 mg/dL (70-104); MAGNESIUM 1.8 mg/dL (1.5-2.7); PHOSPHORUS 1.6 mg/dL (2.7-4.5); POTASSIUM 3.6 mmol/L (3.5-5.1); SODIUM 130 mmol/L (136-145); TCO2 19 mmol/L (25-35)
[2019-08-17] MEDS ORDERED: CALCIUM GLUCONATE 2 GM in NS 100 ML IV ONE (11:54)
[2019-08-17] MEDS ORDERED: VANCOMYCIN IV PER PHARMACY MISC SCH (12:15)
[2019-08-17] MEDS ORDERED: INSULIN PEN NEEDLES ONE (12:59)
[2019-08-17] MEDS: ZOSYN 3.375 GM in NS 50 ML IV SCH ×3 (13:05→23:26)
[2019-08-17] MEDS: TRESIBA FLEXTOUCH U-200 SUBQ SCH (13:09)
[2019-08-17] MEDS: CALTRATE 600 + D PO SCH ×2 (13:10→21:46)
[2019-08-17] MEDS: VANCOMYCIN 2 GM in NS 500 ML IV SCH (13:56)
[2019-08-17] MEDS: HUMALOG SUBQ SCH ×2 (15:18→21:46)
--- NOTE | 2019-08-17 17:37 | Diag Imaging Result Doc PS360 ---
EXAM: CT THORAX W/O CONTRAST - 08/17/2019 HISTORY: pna, pulm edema TECHNIQUE: CT thorax without contrast. No contrast administered per request of the referring provider. COMPARISON: 08/16/2019 portable chest radiograph FINDINGS: Heart size appears upper normal. There are are patchy bilateral infiltrates. There are tiny bilateral pleural effusions. There is no evidence of pneumothorax. There are apparent coronary artery calcifications noted. There are nonspecific small mediastinal lymph nodes. IMPRESSION: Hazy bilateral infiltrates. These are suspicious for pneumonia. Other considerations might include pulmonary edema or pulmonary hemorrhage. Tiny bilateral pleural effusions. There are apparent coronary artery calcifications noted. This exam was performed using automated exposure control, adjustment of mA or kV according to patient size, and/or use of iterative reconstruction technique. Electronically signed by Ke Delcid 08/17/2019 5:35 PM
[2019-08-18] MEDS: NS 1,000 ML IV SCH (02:03)
[2019-08-18] MEDS: VANCOMYCIN 2 GM in NS 500 ML IV SCH ×2 (02:03→15:09)
[2019-08-18] MEDS: NEUTRA-PHOS PO SCH (03:57)
[2019-08-18] MEDS: ZOSYN 3.375 GM in NS 50 ML IV SCH ×3 (05:56→17:28)
[2019-08-18 06:22] LABS: BASO# 0.01 X1000 (0.0-0.2); BASO% 0.1 % (0.0-0.8); HEMATOCRIT 39.1 % (42.0-52.0); HEMOGLOBIN 13.6 g/dL (14.0-18.0); IMM GRAN# 0.02 X1000 (0.0-0.04); IMM GRAN% 0.3 % (0.0-0.5); LYMPH# 1.16 X1000 (1.2-3.4); LYMPH% 16.1 % (20.5-51.1); MCH 28.3 PG (27-31); MCHC 34.8 g/dL (33-37); MCV 81.3 FL (81-99); MONO# 0.94 X1000 (0.11-0.59); MPV 10.4 FL (7.4-10.4); NEUT# 5.08 X1000 (1.4-6.5); NEUT% 70.5 % (42.2-75.2); PLT 191 X1000 (130-400); RBC 4.81 XMIL (4.7-6.1); RDW 12.7 % (11.5-14.5); WBC 7.21 X1000 (4.8-10.8)
[2019-08-18] MEDS: HUMALOG SUBQ SCH ×4 (06:23→21:49)
[2019-08-18 06:50] LABS: AGAP 9; BUN 6 mg/dL (8-22); CALCIUM 7.8 mg/dL (8.8-10.2); CHLORIDE 102 mmol/L (98-107); COSMO 274; CREATININE 0.6 mg/dL (0.7-1.2); ESTIMATED GFR > 60; GLUCOSE 117 mg/dL (70-104); MAGNESIUM 1.7 mg/dL (1.5-2.7); PHOSPHORUS 2.7 mg/dL (2.7-4.5); POTASSIUM 3.2 mmol/L (3.5-5.1); SODIUM 138 mmol/L (136-145); TCO2 27 mmol/L (25-35)
--- NOTE | 2019-08-18 07:36 | EKG Report ---
Test Performed on : 08/16/2019 5:23:35 PM Test Reason : ICU. NO EKG ORDER FOR MUSE Blood Pressure : / mmHG Vent. Rate : 091 BPM Atrial Rate : 091 BPM P-R Int : 156 ms QRS Dur : 082 ms QT Int : 314 ms P-R-T Axes : 030 095 046 degrees QTc Int : 386 ms Normal sinus rhythm. Rightward axis Borderline ECG When compared with ECG of 15-AUG-2019 19:05, (Unconfirmed) QT has shortened Confirmed by Susan DESHPANDE, Jayden ([id number]) on 08/18/2019 8:27:51 AM
[2019-08-18] MEDS ORDERED: LASIX IV ONE (08:32)
--- NOTE | 2019-08-18 09:33 | PROGRESS NOTE ---
DATE: 08/18/2019 SUBJECTIVE: The patient reports no epigastric pain. He is not nauseated. Actually, he is hungry and wanted to try to eat some more consistent diet. OBJECTIVE: Vital Signs: Temperature 98.6 degrees, heart rate 80, respiratory rate 16, blood pressure 142/91, O2 saturation 91% on 5 L nasal cannula. General Examination: This is a 38-year- old, male, lying in bed, in no acute distress. Cardiovascular Examination: S1 and S2 heard. No murmurs, gallops, or rubs. Regular rate and rhythm. Respiratory Examination: Minimal crackles noted in both pulmonary bases. Patient is not using any accessory muscles or having work of breathing. Abdomen: Soft. A little bit tender to palpation in the epigastric area but better in comparing with yesterday. Bowel sounds present. No organomegaly. Extremities: No clubbing, cyanosis, or edema. Peripheral pulses present in both legs. Neurological Examination: The patient is alert and oriented x3. Moves 4 extremities. Laboratory Data: White cell count 7.21, hemoglobin 13.6, hematocrit 39.1, platelets 191,000. BMP remarkable for potassium 3.2, calcium 7.8, and phosphorus and magnesium within normal limits. ASSESSMENT AND PLAN: 1. Diabetic ketoacidosis. That condition has resolved. Patient has been placed on Humalog insulin sliding scale and home medication, Tresiba. 2. Right lower lobe pneumonia. White cell count has normalized but he continues to require high amounts of oxygen. Currently, this patient is on vancomycin and Levaquin. I think our plan is to try to wean off of oxygen. Once he is on room air, I think he can be discharged. The CT of the chest from yesterday showed hazy bilateral infiltrates suspicious for pneumonia but other considerations might include pulmonary edema or pulmonary hemorrhage. Considering that has been treated for diabetic ketoacidosis and he has received plenty of fluids, I think I will try one dose of Lasix 80 mg intravenously now and see how he does. 3. History of blood clots. We will continue with Eliquis. 4. Influenza type A. We will continue with Tamiflu to complete 5 days of treatment. 5. Disposition. I think, considering that this patient is requiring still 5 to 6 L of oxygen by nasal cannula, I prefer to keep him here in the PVC unit. As we mentioned before, if he does not require any oxygen, I think he can be discharged tomorrow or the day after. cc: Salty Wei MD
[2019-08-18] MEDS: TAMIFLU PO SCH ×2 (10:09→21:49)
[2019-08-18] MEDS: TRESIBA FLEXTOUCH U-200 SUBQ SCH (10:09)
[2019-08-18] MEDS: CALTRATE 600 + D PO SCH ×2 (10:09→21:48)
[2019-08-18] MEDS: ELIQUIS PO SCH ×2 (10:09→21:49)
[2019-08-18] MEDS: PROTONIX IV SCH ×2 (10:09→21:48)
[2019-08-18] MEDS ORDERED: POTASSIUM CHLORIDE 20 MEQ/SWI 20 MEQ/100 ML IVPB IV SCH (13:00)
[2019-08-18] MEDS ORDERED: MICRO-K PO ONE (13:03)
[2019-08-18] MEDS ORDERED: KLOR-CON PO ONE (13:15)
[2019-08-18] MEDS: G.I. COCKTAIL PO PRN (15:08)
[2019-08-18] MEDS: MORPHINE IV PRN ×2 (17:29→22:16)
[2019-08-18] MEDS: SODIUM CHLORIDE 0.9% INJ SCH (21:48)
[2019-08-18] MEDS: CARAFATE LIQUID PO SCH (21:49)
[2019-08-19] MEDS: ZOSYN 3.375 GM in NS 50 ML IV SCH ×4 (00:20→17:46)
[2019-08-19] MEDS: VANCOMYCIN 2 GM in NS 500 ML IV SCH ×2 (00:55→02:12)
[2019-08-19] MEDS: CARAFATE LIQUID PO SCH ×4 (01:01→21:30)
[2019-08-19] MEDS: MORPHINE IV PRN ×2 (04:52→11:31)
[2019-08-19 06:20] LABS: BASO# 0.02 X1000 (0.0-0.2); BASO% 0.2 % (0.0-0.8); EOS# 0.01 X1000 (0.0-0.7); EOS% 0.1 % (0.0-10.0); HEMOGLOBIN 14.1 g/dL (14.0-18.0); IMM GRAN# 0.04 X1000 (0.0-0.04); IMM GRAN% 0.4 % (0.0-0.5); LYMPH# 1.09 X1000 (1.2-3.4); LYMPH% 11.8 % (20.5-51.1); MCH 28.4 PG (27-31); MCHC 34.4 g/dL (33-37); MCV 82.5 FL (81-99); MONO# 1.31 X1000 (0.11-0.59); MONO% 14.2 % (1.7-9.3); MPV 10.5 FL (7.4-10.4); NEUT# 6.77 X1000 (1.4-6.5); NEUT% 73.3 % (42.2-75.2); PLT 202 X1000 (130-400); RBC 4.97 XMIL (4.7-6.1); RDW 12.7 % (11.5-14.5); WBC 9.24 X1000 (4.8-10.8)
[2019-08-19 06:39] LABS: CREATININE 1.7 mg/dL (0.7-1.2); MAGNESIUM 1.6 mg/dL (1.5-2.7); PHOSPHORUS 3.5 mg/dL (2.7-4.5); POTASSIUM 3.4 mmol/L (3.5-5.1)
[2019-08-19] MEDS: HUMALOG SUBQ SCH ×4 (06:48→21:30)
[2019-08-19] MEDS ORDERED: NS 1,000 ML IV SCH (07:45)
[2019-08-19] MEDS ORDERED: DUONEB (A & A) INH PRN (08:06)
[2019-08-19] MEDS: CALTRATE 600 + D PO SCH ×2 (08:12→21:30)
[2019-08-19] MEDS: ELIQUIS PO SCH ×2 (08:12→21:30)
[2019-08-19] MEDS: ZYVOX 600 MG/D5W 600 MG/300 ML IVPB IV SCH ×2 (08:12→21:29)
[2019-08-19] MEDS: TAMIFLU PO SCH ×2 (08:12→21:30)
[2019-08-19] MEDS: TRESIBA FLEXTOUCH U-200 SUBQ SCH (08:13)
[2019-08-19] MEDS: PROTONIX IV SCH ×3 (08:14→21:30)
[2019-08-19] MEDS: SODIUM CHLORIDE 0.9% INJ SCH ×2 (08:14→21:30)
--- NOTE | 2019-08-19 10:25 | PROGRESS NOTE ---
DATE: 08/19/2019 SUBJECTIVE: This patient is complaining of some shortness of breath, and he has tenderness to palpation at the level of the epigastric area. He received a dose of Lasix yesterday, and his creatinine increased from 0.6 to 1.7. I checked his CT scan done on 08/17/2019 from the chest and showed bilateral infiltrates likely pneumonia, I will consult Pulmonary Department due to his hypoxemic respiratory failure and pneumonia. He has been requiring more oxygen since admission even though the DKA resolved, and the blood sugar has been more stable. As per the patient, he has been coughing since last week. Today, he is slightly hypokalemic, but since he has acute kidney injury I will monitor for now. OBJECTIVE: Vital Signs: Temperature 98 degrees, pulse 81, respiratory rate 20, blood pressure 136/84. Oxygen saturation 93 on 6 L of nasal cannula. HEENT: Head normocephalic. No trauma. PERRLA. Neck: Supple. No JVD. No masses. Central trachea. Chest: Coarse breath sounds bilaterally. He is not using any accessory muscle or having work of breathing. Abdomen: Soft. Tender to palpation at the level of the epigastric area. Positive bowel sounds. No distention. No hepatosplenomegaly. Extremities: No edema. No clubbing. No cyanosis. Neurological: The patient is alert and oriented x3. No focal deficits. LABORATORY: WBC 9.2, hemoglobin 14.1, hematocrit 41, and platelets 202,000. Sodium 140, potassium 3.4, chloride 99, bicarbonate 25, BUN 12, creatinine 1.7, glucose 156, calcium 8, phosphorus 3.5, and magnesium 1.6. ASSESSMENT AND PLAN: 1. DKA due to right lower lobe pneumonia. This patient's blood sugar seems to be much better. He has been placed on a diabetic diet. The DKA has resolved. 2. Bilateral multilobar pneumonia. He is still requiring a high amount of oxygen. This patient has been placed on vancomycin and Zosyn. I will stop the vancomycin because of his acute kidney injury. I will put this patient on Zyvox instead. 3. Acute kidney injury. When this patient was hospitalized, the creatinine was around 1.4 and after getting fluids the creatinine normalized. Yesterday, he received a dose of Lasix and he has been getting vancomycin. The creatinine increased to 1.7 and BUN from 6 to 12. I will stop the vancomycin. I will give him some IV fluids, and I will start this patient on Zyvox. 4. History of blood clots. Continue with Eliquis. Influenza A is positive. As per the patient, also he was initially treated for influenza B week ago. Continue with Tamiflu. 5. Overall, this patient still is complaining of some chest pain. He has an acute kidney injury, and I will give him some fluids. I will stop the vancomycin and put him on Zyvox. I will consult the Pulmonary Department to evaluate this patient since his oxygen requirements are higher. cc: Lonnie Babin MD
[2019-08-19] MEDS: G.I. COCKTAIL PO PRN (10:27)
[2019-08-19] MEDS: DUONEB (A & A) INH SCH ×4 (12:15→23:43)
--- NOTE | 2019-08-19 21:20 | CONSULTATION ---
DATE OF CONSULTATION: 08/19/2019 REQUESTING PROVIDER: Lonnie Babin MD REASON FOR CONSULTATION: Hypoxic respiratory failure, pneumonia. HISTORY OF PRESENT ILLNESS: This is a 38-year-old male with a medical history of diabetes mellitus type 2. He presented to the ER on the evening of 08/15/2019 with chest pain, generalized muscle achiness and virus symptoms for several days. He apparently was initially diagnosed with flu B in [place] 1 week ago. However, despite of the treatment with Tamiflu and Tylenol or Motrin, he did not feel better, but worse, especially on 08/15/2019. He also developed nausea and vomiting. Initial workup in the ER revealed diabetic ketoacidosis, influenza A and right lower lobe pneumonia. He has been treated with zyvox and zosyn since admission, but apparently he requires high oxygen with continuous acute epigastric pain. Patient currently is lying in bed with some mild distress. He complained of epigastric pain 7.5/10, sharp epigastric pain to 7.5/10. He just received morphine 10 minutes ago. He is still complaining of nausea and vomiting. The last episodes of vomiting were yesterday. He also reports loss of appetite and palpitations at times. He reports that was diagnosed with GERD 6 to 8 years ago and had been treated at that time. Since then, he did not take any medicine. The patient also reported he used to be morbidly obese and he lost over 100 pounds after diagnosed with diabetes mellitus type 2 by simply monitoring his diet and lifestyle. He reports no sore throat, fever, chills, chest pain, bowel habit change or urinary discomfort. He did have some dry cough occasionally, but not significant. PAST MEDICAL HISTORY: 1. Diabetes mellitus type 2. 2. History of GERD. 3. History of morbid obesity. PAST SURGICAL HISTORY: Knee surgery. SOCIAL HISTORY: The patient stays here for work. His family lives in [place]. He has no history of alcohol, tobacco, or illicit drug use. FAMILY HISTORY: Positive for hypertension. ALLERGIES: Iodine and seafood. REVIEW OF SYSTEMS: A 10-point review of systems was conducted and the pertinent is listed within the HPI, otherwise noncontributory. PHYSICAL EXAMINATION: Vital Signs: Temperature 98.2, blood pressure 126/74, pulse 88, respiratory rate 20, oxygen saturation 92% on nasal cannula at 6 L. General: Chronically ill- appearing, lying in bed with some mild distress noted. He is complaining of sharp epigastric pain of 7.5/10. HEENT: Atraumatic, normocephalic. Trachea midline. Mucosa pink and moist. Respiratory: Even and unlabored. Symmetrical excursion. No increased work of breathing. No accessory muscle use. Auscultation revealed mildly coarse bilaterally, but no wheezing or crackles noted. Some diminished breathing sounds bibasilarly. Cardiovascular: Regular rate and rhythm. Gastrointestinal: Soft, nondistended, some sharp epigastric pain. Normoactive bowel sounds in all 4 quadrants. Extremities: No pedal edema. No cyanosis. No clubbing. Dorsalis pedis 2+ bilaterally. Neurologic: Alert and oriented x4. Speech fluent. Follows commands. LABORATORY DATA: White blood cell 9.24, hemoglobin 14.1, hematocrit 41, platelet 202,000. Sodium 140, potassium 3.4, chloride 99, carbon dioxide 25, BUN 12, creatinine 1.7, glucose 156. C- reactive protein 184. ProBNP 204. IMAGING DATA: CT thorax without contrast on 08/17/2019 showed hazy bilateral infiltrates. This is suspicious for pneumonia. Other considerations might include pulmonary edema or pulmonary hemorrhage. Tiny bilateral pleural effusions and apparent coronary artery calcifications noted. ASSESSMENT: This is a 38-year-old male with a medical history of diabetes mellitus type 2, history of gastroesophageal reflux disease, and history of morbid obesity. He has been admitted to the [facility] since 08/15/2019 with diabetes, diabetic ketoacidosis, influenza A, and right lower lobe pneumonia. 1. Acute hypoxic respiratory failure. 2. Hazy bilateral infiltrates suspicious for pneumonia or pulmonary edema or pulmonary hemorrhage with tiny bilateral pleural effusions. 3. Influenza A. 4. Acute severe epigastric pain. PLAN: 1. Continue supplemental oxygen as needed. 2. Continue antibiotic and breathing treatment. 3. Follow up with CBC, BMP. 4. Continue GI and DVT prophylaxis. 5. The GI specialist, Dr. Bishop, is on board. 6. Further recommendations pending hospital course. Thank you for the courtesy of this consult. Dictated by JAYLEN Sevilla for Taina Bal MD cc: JAYLEN Sevilla MD [facility]
--- NOTE | 2019-08-19 21:45 | GASTROENTEROLOGY CONSULTATION ---
DATE: 08/19/2019 REASON FOR CONSULTATION: Abdominal pain, nausea, vomiting. HISTORY OF PRESENT ILLNESS: This is a 38-year-old, male, with a history of diabetes, who came into the hospital with several days worth of muscle pain, general fatigue, fever, nausea, vomiting. Per records, he was tested positive for influenza B a week ago in [place]. He took Tamiflu, Tylenol, and Motrin. He came to [place] for work. Symptoms continued and he was to the point that he could not get out of bed. He came in to the hospital for evaluation and showed diabetic ketoacidosis. He also tested positive for influenza A. Chest x-ray showed right lower lobe infiltrate. Currently, patient is on oxygen by nasal cannula. He has reported some episodes of abdominal pain and episodes of nausea and vomiting. Today, he states he had some diarrhea. PAST MEDICAL HISTORY: 1. Diabetes mellitus. 2. History of recent influenza B, treated with Tamiflu. 3. History of DVT, on Eliquis. PAST SURGICAL HISTORY: Knee surgery. ALLERGIES: Iodine; unknown reaction. HOME MEDICATIONS: 1. Eliquis 5 mg twice a day. 2. Insulin 200 units subcu daily. SOCIAL HISTORY: He lives in [place], but works in [place]. No reported tobacco, alcohol, or drug use. REVIEW OF SYSTEMS: Per History of Present Illness. PHYSICAL EXAMINATION: Vital Signs: Temperature 98.2 degrees, pulse 88, respirations 20, blood pressure 126/74. General: Patient is awake, alert, in no acute distress. He does report a cough, some shortness of breath, some abdominal pain. HEENT: Normocephalic, atraumatic. Pupils equal, round, reactive to light. Sclerae nonicteric. Respiratory: Some congestion noted. Abdomen: Soft, nontender at time of my evaluation. Positive bowel sounds. Extremities: No lower extremity edema noted. Neurological: Cranial nerves 2 through 12 grossly intact. Patient is awake, alert, oriented. LABORATORY: Hematology: WBC 9.24, hemoglobin 14.1, hematocrit 41.0, MCV 82.5, platelets 202,000. Coagulation: Protime 15.4, INR 1.20, PTT 24.0. Chemistry: Sodium 140, potassium 3.4, chloride 99, CO2 25, BUN 12, creatinine 1.7, glucose 156, calcium 8.0, phosphorus 3.5, magnesium 1.6. C- reactive protein 184.8. IMAGING: Chest x-ray showed hazy bilateral infiltrates, suspicious for pneumonia. ASSESSMENT AND PLAN: 1. Diabetic ketoacidosis, resolved. Continue current management. 2. Pneumonia. Patient is on oxygen and antibiotics. 3. Acute kidney injury. 4. History of blood clots, on Eliquis. 5. Influenza A positive, recently treated for influenza B a week ago and was on Tamiflu. 6. Abdominal pain, most likely multifactorial. His coughing most likely has caused some abdominal pain. Continue proton pump inhibitor and also added Carafate. Will continue to follow. Would not recommend endoscopy at this time, but further plans will be made according to his progress. We will follow peripherally. 7. I have discussed this case with Dr. Bishop. GI will sign off for now but please reconsult if needed. Thank you for this consultation. Dictated by JAYLEN Ceja for Parminder Bishop MD cc: JAYELN Urbina MD [facility]
[2019-08-20] MEDS: ZOSYN 3.375 GM in NS 50 ML IV SCH ×2 (00:46→05:59)
[2019-08-20] MEDS: MORPHINE IV PRN (00:57)
[2019-08-20] MEDS: CARAFATE LIQUID PO SCH ×4 (02:45→20:24)
[2019-08-20] MEDS: DUONEB (A & A) INH SCH ×6 (03:18→23:20)
[2019-08-20] MEDS: HUMALOG SUBQ SCH ×4 (06:16→20:25)
[2019-08-20 07:23] LABS: BASO# 0.02 X1000 (0.0-0.2); BASO% 0.2 % (0.0-0.8); EOS# 0.04 X1000 (0.0-0.7); EOS% 0.4 % (0.0-10.0); HEMOGLOBIN 13.5 g/dL (14.0-18.0); IMM GRAN# 0.03 X1000 (0.0-0.04); IMM GRAN% 0.3 % (0.0-0.5); LYMPH# 1.36 X1000 (1.2-3.4); LYMPH% 14.5 % (20.5-51.1); MCH 28.5 PG (27-31); MCHC 33.8 g/dL (33-37); MCV 84.6 FL (81-99); MONO# 1.52 X1000 (0.11-0.59); MONO% 16.3 % (1.7-9.3); MPV 10.6 FL (7.4-10.4); NEUT# 6.38 X1000 (1.4-6.5); NEUT% 68.3 % (42.2-75.2); PLT 235 X1000 (130-400); RBC 4.73 XMIL (4.7-6.1); RDW 12.8 % (11.5-14.5); WBC 9.35 X1000 (4.8-10.8)
[2019-08-20 07:43] LABS: CALCIUM 8.2 mg/dL (8.8-10.2); CREATININE 2.5 mg/dL (0.7-1.2); MAGNESIUM 1.9 mg/dL (1.5-2.7); PHOSPHORUS 3.7 mg/dL (2.7-4.5); POTASSIUM 3.5 mmol/L (3.5-5.1)
[2019-08-20 08:42] LABS: URINE SOURCE CLEAN CATCH
--- NOTE | 2019-08-20 08:42 | Diag Imaging Result Doc PS360 ---
EXAM: CHEST-PORTABLE 08/20/2019 HISTORY: SOB TECHNIQUE: AP portable at 0832 COMMENT: There is ill-defined opacity in the left base partially obscuring the left heart border. There is also some ill-defined opacity over the right hemidiaphragm which has in fact slightly improved since the previous study of 08/16/2019. There is also decreased consolidation in the left base. IMPRESSION: Improved atelectasis or pneumonia in both lung bases. Electronically signed by Zak Singh 08/20/2019 8:39 AM
[2019-08-20 08:45] LABS: BILIRUBIN URINE NEGATIVE (NEGATIVE); BLOOD URINE TRACE (NEGATIVE); COLOR YELLOW; GLUCOSE URINE 300 mg/dL (NEGATIVE); LEUKOCYTES URINE NEGATIVE (NEGATIVE); NITRITE URINE NEGATIVE (NEGATIVE); PROTEIN URINE TRACE mg/dL (NEGATIVE); SP GRAVITY URINE 1.008; TURBIDITY URINE CLEAR (CLEAR); UROBILINOGEN URINE NORMAL (NORMAL)
[2019-08-20] MEDS ORDERED: NS 50 ML ONE ×2 (09:01→09:02)
[2019-08-20] MEDS ORDERED: ZOSYN ONE ×2 (09:01→09:02)
[2019-08-20 09:02] LABS: KETONE URINE 10 mg/dL (NEGATIVE)
[2019-08-20 09:03] LABS: UR EPITHELIAL CELLS <10 /HPF (<10); URINE BACTERIA NEGATIVE /HPF; URINE RBC <10 /HPF (<10); URINE WBC <10 /HPF (<10)
[2019-08-20] MEDS: ZYVOX 600 MG/D5W 600 MG/300 ML IVPB IV SCH ×2 (09:35→20:22)
[2019-08-20] MEDS: ELIQUIS PO SCH ×2 (09:36→20:24)
[2019-08-20] MEDS: CALTRATE 600 + D PO SCH ×2 (09:37→20:24)
[2019-08-20] MEDS: SODIUM CHLORIDE 0.9% INJ SCH ×2 (09:37→20:24)
[2019-08-20] MEDS: PROTONIX IV SCH ×2 (09:37→20:24)
[2019-08-20] MEDS: TRESIBA FLEXTOUCH U-200 SUBQ SCH (09:42)
[2019-08-20] MEDS: ZOSYN 2.25 GM in NS 50 ML IV SCH ×2 (11:37→17:15)
--- NOTE | 2019-08-20 11:54 | PROGRESS NOTE ---
DATE: 08/20/2019 SUBJECTIVE: This patient is still complaining of some shortness of breath, and he has some tenderness at the level of the epigastric area. Also, he is complaining of reflux. He has been seen by Gastroenterology Department and treatment has been placed. We will monitor for now. His kidney function is getting worse. I will stop the Tamiflu since he already completed treatment, and now with this kidney function we do not need to give him any more, today would be day number 5. I have requested urine studies, renal ultrasound and urinalysis. I started him on some fluids yesterday that have been running at 75 mL/hour and he is tolerating p.o.. The fluids are still running, but they will stop today in the morning, and I will wait for Nephrology Department evaluation. Pending x-ray. OBJECTIVE: Vital Signs: Temperature 98.6 degrees, pulse 76, respiratory rate 16, blood pressure 135/83, and oxygen saturation 95% on 6 liters of nasal cannula. HEENT: Head normocephalic, no trauma PERRLA. Neck: Supple. No JVD. No masses. Central trachea. Chest: Coarse breath sounds bilaterally. He is not using any accessory muscles or having work of breathing. He has crepitus bilaterally as well. Abdomen: Soft, some tenderness to palpation at the level of the epigastric area. Positive bowel sounds. No distention. No hepatosplenomegaly. Extremities: No edema, no clubbing, no cyanosis. Neurological: The patient is alert and oriented x3. No focal deficits. LABORATORY: WBC 9.3, hemoglobin 13.5, hematocrit 40, platelets 235,000. Sodium 136, potassium 3.5, chloride 98, bicarbonate 19, BUN 16, creatinine 2.5, glucose 240, calcium 8.2, proBNP 180, CRP 184. ASSESSMENT AND PLAN: 1. Diabetic ketoacidosis, likely due to right lower lobe pneumonia. The patient's blood sugar has been more stable. Continue with same management. Diabetic ketoacidosis has resolved. 2. Bilateral multilobar pneumonia. He is still requiring a high amount of oxygen. The patient has been placed on vancomycin and Zosyn initially, which I have stopped due to his acute kidney injury. I have readjusted the dose of Zosyn and I put this patient on Zyvox. 3. Acute kidney injury. When the patient was initially hospitalized, the creatinine was around 1.4 and then normalized. Two days ago he received a dose of Lasix, and yesterday the creatinine increased to 1.7 and today is even higher to 2.5. He is still having good urine output. BUN is increasing as well. I have requested an evaluation by Nephrology Department. I have requested also some lab work. 4. Positive influenza A, already treated with Tamiflu. Apparently this patient also has a recent history of influenza B, and he was treated also with Tamiflu at that time. The Tamiflu at this time has been stopped, treatment has been completed. 5. History of blood clot. Continue with Eliquis. 6. Hypoxemic respiratory failure, probably due to a combination of pneumonia, viral and bacterial. I will continue with the same management for now. Pulmonary Department on board. 7. Uncontrolled diabetes. Initial hemoglobin A1c was around 12.4. cc: Lonnie Babin MD
[2019-08-20 15:56] LABS: UR CREAT RANDOM 66.9 mg/dL (14-26); UR PROT RANDOM 19.8 mg/dL
--- NOTE | 2019-08-20 16:00 | Diag Imaging Result Doc PS360 ---
EXAM: US RENAL 2 (RETROPER) COMPLETE 08/20/2019 HISTORY: telma/arf TECHNIQUE: Renal ultrasound COMMENT: The liver is hyperechoic. The kidneys are hyperechoic and somewhat inhomogeneous in echotexture without evidence of hydronephrosis. The urinary bladder is not distended. The right kidney is 14.2 x 6.5 x 7.4 cm the left is 14.2 x 6.2 x 8.1 cm. IMPRESSION: Enlarged hyperechoic kidneys consistent with medical renal disease. The possibility of acute inflammation cannot be excluded. Electronically signed by Zak Singh 08/20/2019 3:57 PM
[2019-08-20] MEDS: TYLENOL PO PRN ×2 (16:06→20:39)
--- NOTE | 2019-08-20 21:24 | NEPHROLOGY CONSULTATION ---
DATE: 08/20/2019 REASON FOR CONSULTATION: Acute kidney injury. HISTORY OF PRESENT ILLNESS: Mr. Iyer is a 38-year-old white male with longstanding diabetes, who has been in the hospital since 08/15. He presented with nausea, vomiting, generalized myalgias, fevers, etc. At that time, he had creatinine of 1.4, serum bicarbonate of 4 with an anion gap of 37. He was diagnosed with DKA and treated appropriately. He also had evidence of right lower lobe pneumonia and influenza. As such, he has been treated with broad- spectrum antibiotics including Zosyn and vancomycin. He has not received any IV contrast. No hypotension has been documented. No other nephrotoxic medications. In this context, he has had excellent urine output throughout his hospitalization, including 1700 mL of urine so far today. His creatinine was 1.4 on presentation but promptly resolved to 0.6. Over the last 48 hours it has risen from 0.6 to 2.5 progressively. The patient is not aware of any problems. He has no voiding symptoms. No swelling, shortness of breath, nausea, vomiting, anorexia, etc. PAST MEDICAL HISTORY: As above. MEDICATIONS: Home medications include Eliquis and Tresiba. 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 ALLERGIES: Iodine. SOCIAL HISTORY: He is from [place] but is in town on work assignment. FAMILY HISTORY: Otherwise noncontributory. REVIEW OF SYSTEMS: Otherwise noncontributory. PHYSICAL EXAMINATION: Blood pressure 138/83, heart rate 92, respirations 29. Afebrile. Generally, healthy-appearing young man in no acute distress. Skin is warm and dry. Conjunctivae are pink, moist. Pupils are equal and round. Oropharynx is clear. Normal tongue. Normal teeth. Neck is supple. Trachea is midline. Neck vein distention is not present. PMI is nondisplaced. Regular rate and rhythm without murmurs, gallops, rubs. Lungs have equal excursion, equal breath sounds. No crackles or wheezes appreciated. Abdomen is soft, nontender. Bowel sounds present. No organomegaly, masses or bruits. Extremities have no edema, clubbing or cyanosis. Neurologic exam grossly nonfocal. IMPRESSION AND PLAN: Acute kidney injury. Renal ultrasound with enlarged kidneys that are echogenic, but no other findings. No obstruction. Urinalysis performed today finds 3+ glucose, trace ketones and trace protein, trace blood. FENa is greater than 1%. Urine protein/creatinine ratio is approximately 0.3. Current medications are dosed appropriately for his level of kidney function. Given his excellent urine output and clinical course, he will likely have only short duration acute tubular necrosis. I agree with changing his vancomycin to linezolid. I will draw vancomycin level. No other testing required at this time. cc: Shawn Gonzalez MD
[2019-08-21] MEDS: ZOSYN 2.25 GM in NS 50 ML IV SCH ×4 (00:18→17:14)
[2019-08-21] MEDS: CARAFATE LIQUID PO SCH ×4 (01:31→20:17)
[2019-08-21] MEDS: DUONEB (A & A) INH SCH ×6 (03:17→22:41)
[2019-08-21 05:58] LABS: BASO# 0.01 X1000 (0.0-0.2); BASO% 0.1 % (0.0-0.8); EOS# 0.11 X1000 (0.0-0.7); EOS% 1.2 % (0.0-10.0); HEMATOCRIT 39.3 % (42.0-52.0); IMM GRAN# 0.03 X1000 (0.0-0.04); IMM GRAN% 0.3 % (0.0-0.5); LYMPH# 0.97 X1000 (1.2-3.4); LYMPH% 10.2 % (20.5-51.1); MCH 28.1 PG (27-31); MCHC 33.1 g/dL (33-37); MCV 84.9 FL (81-99); MONO% 20.1 % (1.7-9.3); MPV 10.3 FL (7.4-10.4); NEUT# 6.45 X1000 (1.4-6.5); NEUT% 68.1 % (42.2-75.2); PLT 309 X1000 (130-400); RBC 4.63 XMIL (4.7-6.1); RDW 12.7 % (11.5-14.5); WBC 9.47 X1000 (4.8-10.8)
[2019-08-21 06:10] LABS: ALB/GLOB RATIO 0.8; ALBUMIN 2.8 g/dL (3.5-5.0); CALCIUM 8.5 mg/dL (8.8-10.2); CREATININE 2.8 mg/dL (0.7-1.2); POTASSIUM 3.3 mmol/L (3.5-5.1); TOTAL BILIRUBIN 0.35 mg/dL (0.20-1.00); TOTAL PROTEIN 6.5 g/dL (6.3-8.3)
[2019-08-21] MEDS: HUMALOG SUBQ SCH ×4 (06:22→21:45)
[2019-08-21] MEDS: TYLENOL PO PRN (06:27)
[2019-08-21 06:46] LABS: EOS 1 % (1-10); LYMPHS 9 % (21-51); MONO 12 % (1-9); SEGS 78 % (42-75)
--- NOTE | 2019-08-21 06:56 | Diag Imaging Result Doc PS360 ---
EXAM: CHEST-PORTABLE HISTORY: dyspnea TECHNIQUE: Single view COMPARISON: 08/20/2019 FINDINGS: Poor inspiratory effort. No cardiomegaly. There are bilateral infiltrates and small pleural effusions. IMPRESSION: Mild interval worsening Electronically signed by Manpreet Treviño 08/21/2019 6:54 AM
[2019-08-21] MEDS: ZYVOX 600 MG/D5W 600 MG/300 ML IVPB IV SCH ×2 (09:19→20:18)
[2019-08-21] MEDS: TRESIBA FLEXTOUCH U-200 SUBQ SCH (09:20)
[2019-08-21] MEDS: PROTONIX IV SCH ×2 (09:20→20:18)
[2019-08-21] MEDS: ELIQUIS PO SCH ×2 (09:20→20:17)
[2019-08-21] MEDS: CALTRATE 600 + D PO SCH ×2 (09:20→20:17)
--- NOTE | 2019-08-21 09:29 | PROGRESS NOTE ---
DATE: 08/21/2019 SUBJECTIVE: This patient is still complaining of shortness of breath, but he seems to be feeling a bit better compared with yesterday. He is having a good urine output even though the creatinine increased just a little bit more but BUN actually is about the same, I will continue with same management for now. Chest x-ray showed bilateral infiltrates and some pleural effusion, but I am not going to give him any kind of diuretics due to his kidney dysfunction and actually, like I mentioned before, he is having good urine output. OBJECTIVE: Vital Signs: Temperature 97.9 degrees, pulse 85, respiratory rate 17, blood pressure 128/79, oxygen saturation 91% on 5 L of nasal cannula. HEENT: Head normocephalic, no trauma. PERRLA. Neck: Supple. No JVD. No masses. Central trachea. Chest: Coarse breath sounds bilaterally with some crepitus at the bases and crackles at the bases as well. Abdomen: Soft. Some tenderness to palpation at the level of the epigastric area. Positive bowel sounds. No distention. No hepatosplenomegaly. Extremities: No edema, no clubbing, no cyanosis. Neurological: The patient is awake, alert, and oriented x3. No focal deficits. LABORATORY DATA: WBC 9.4, hemoglobin 13, hematocrit 39.3, platelet 309,000. Sodium 135, potassium 3.3, chloride 96, bicarbonate 26, BUN 15, creatinine 2.8, glucose 298, calcium 8.5, albumin 2.8. ASSESSMENT AND PLAN: 1. Diabetic ketoacidosis, likely due to right lower lobe pneumonia and positive influenza A. As per the patient, previously, he had influenza B a few days ago and he also was treated with Tamiflu, diabetic ketoacidosis has resolved. 2. Bilateral multilobar pneumonia. He is still requiring high amount of oxygen. This patient has been placed on Zyvox. I will continue with Zosyn. 3. Acute kidney injury, urine output is good but creatinine increased a little bit compared with yesterday. I do believe this is going to be temporary. 4. Positive influenza A, already treated with Tamiflu during this hospitalization and apparently he had a recent history of influenza B, also treated with Tamiflu at that time. 5. History of blood clots, continue with Eliquis. 6. Hypoxemic respiratory failure, likely due to a combination of pneumonia which is viral and bacterial and pulmonary edema. Pulmonary Department on board. 7. Uncontrolled diabetes, hemoglobin A1c upon admission was around 12.4. We will monitor. Blood sugar seems to be stable. cc: Lonnie Babin MD
--- NOTE | 2019-08-21 13:49 | PROVIDER PROGRESS NOTE ---
Progress Note Subjective: Worsening chest xray. Admits to decreased appetite and orthopnea. Denies any other complaints. Objective: temperature 98.4, pulse 93, respirations 27, blood pressure 113/66, 02 sat 93% of 6 L. General: middle-aged white male lying in bed in no acute distress. HEENT: normocephalic, atraumatic, pupils equal and reactive, mucous membranes moist. Trachea midline. Skin: warm and dry. Neck: supple, no JVD observed. Cardiovascular: S 1 S 2, regular rate and rhythm. No murmurs or gallops noted. Respiratory: clear anteriorly with equal air entry. Abdomen: soft, nontender, nondistended. Bowel sounds present. : not inspected Extremities: no clubbing or edema noted. Neurological: alert and oriented to person, place, and time. Labs: WBC 9.47, hemoglobin 13, hematocrit 39.3, platelet count 309, sodium 135, potassium 3.3, chloride 96, carbon dioxide 23, anion gap 16, BUN 15, creatinine 2.8, albumin 2.8, random total creatinine 66.9, random total protein 19.8, random sodium 31. Random vancomycin 10.6. Impression: Acute kidney injury. Acute tubular necrosis. Creatinine slightly up to 2.8. Likely to stabilizing. Excellent urine output. Vancomycin level normal. Continue to monitor. Blood pressure. In target. Anemia. Stable. Fluid volume. Euvolemic on exam. Electrolytes and acid base balance. Stable. Nutrition. Adequate Medication review. No change.
--- NOTE | 2019-08-21 19:47 | GASTROENTEROLOGY PROGRESS NOTE ---
DATE: 08/21/2019 SUBJECTIVE: The patient is still complaining of some chest-type pain and shortness of breath. OBJECTIVE: Vital signs: Temperature 99.2 degrees, pulse 88, respirations 22, blood pressure 134/85. General: The patient is awake and alert, in no acute distress. LABORATORY: Hematology: WBC 9.47, hemoglobin 13.0, hematocrit 39.3, MCV 84.9. Chemistry: Sodium 135, potassium 3.3, chloride 96, CO2 of 23, BUN 15, creatinine 2.8, glucose 298. ASSESSMENT AND PLAN: 1. Diabetic ketoacidosis. Continue current medications. 2. Pneumonia. Continue oxygen and antibiotics. 3. Influenza A-positive and recent influenza B. 4. Abdominal pain, chest pain, most likely related to coughing. Would continue proton pump inhibitor and Carafate. 5. Gastrointestinal. Will currently sign off but I will give the patient contact information to call and make an office visit appointment if he continues to have GI issues. We can proceed with esophagogastroduodenoscopy. I have discussed this case with Dr. Bishop. Dictated by JAYLEN Ceja for Parminder Bishop MD cc: JAYLEN Urbina MD
[2019-08-22] MEDS: ZOSYN 2.25 GM in NS 50 ML IV SCH ×4 (01:26→17:52)
[2019-08-22] MEDS: CARAFATE LIQUID PO SCH ×5 (01:27→20:36)
[2019-08-22] MEDS: DUONEB (A & A) INH SCH ×6 (03:36→22:51)
[2019-08-22] MEDS: HUMALOG SUBQ SCH ×4 (06:29→20:41)
[2019-08-22 06:44] LABS: CALCIUM 9.1 mg/dL (8.8-10.2); CREATININE 2.7 mg/dL (0.7-1.2); POTASSIUM 3.5 mmol/L (3.5-5.1)
[2019-08-22] MEDS: ZYVOX 600 MG/D5W 600 MG/300 ML IVPB IV SCH ×2 (08:04→20:35)
[2019-08-22] MEDS: ELIQUIS PO SCH ×2 (08:04→20:35)
[2019-08-22] MEDS: SODIUM CHLORIDE 0.9% INJ SCH ×2 (08:04→20:36)
[2019-08-22] MEDS: PROTONIX IV SCH ×2 (08:04→20:36)
[2019-08-22] MEDS: CALTRATE 600 + D PO SCH ×2 (08:04→20:35)
[2019-08-22] MEDS: TRESIBA FLEXTOUCH U-200 SUBQ SCH (08:04)
[2019-08-22] MEDS ORDERED: TESSALON PO PRN (08:10)
[2019-08-22] MEDS: MORPHINE IV PRN (12:23)
[2019-08-22] MEDS: TYLENOL PO PRN (13:05)
--- NOTE | 2019-08-22 14:08 | PROGRESS NOTE ---
DATE: 08/22/2019 SUBJECTIVE: This patient seems to be feeling better. He is complaining of cough. I will add a cough medication for this patient. His BUN and creatinine are a little bit better compared with yesterday. Creatinine from 2.8 decreased to 2.7, but the urine output is good at 2.9 L and we have a negative balance of 1.8 L so far. I will continue with the same management. Pulmonary Department as well as Nephrology Department on board. OBJECTIVE: Vital Signs: Temperature 98.6 degrees, pulse 85, respiratory rate 24, blood pressure 132/87, oxygen saturation 96% on 4 L of nasal cannula. HEENT: Head normocephalic, no trauma. PERRLA. Neck: Supple. No JVD. No masses. Central trachea. Chest: Coarse breath sounds bilaterally with some crepitus at the bases and crackles at the bases as well. Abdomen: Soft. Some tenderness to palpation at the level of the epigastric area. Positive bowel sounds. No distention. No hepatosplenomegaly. Extremities: No edema. No clubbing. No cyanosis. Neurological: The patient is awake. He is oriented x3. No focal deficits. LABORATORY: Sodium 140, potassium 3.5, chloride 99, bicarbonate 24, BUN 14, creatinine 2.7, glucose 243, calcium 9.1. ASSESSMENT AND PLAN: 1. Diabetic ketoacidosis, likely due to right lower lobe pneumonia and uncontrolled diabetes. His initial hemoglobin A1c was around 12.4. Also, he has a positive influenza A and as per the patient, he just had an influenza B treated. 2. Bilateral multilobar pneumonia. He is still requiring oxygen through the nasal cannula, now around 4 L. He has been placed on Zyvox and Zosyn. He has a positive influenza A and he completed the treatment with Tamiflu. Also, he apparently had a an episode of influenza B a few days ago, treated as well. 3. Acute kidney injury. Urine output is good. BUN and creatinine are a little bit better compared with yesterday. I do believe this acute process is going to be temporary. 4. Positive influenza A, already treated with Tamiflu during this hospitalization. Apparently, he had a recent history of influenza B, also treated with Tamiflu. 5. History of deep vein thrombosis at the level of the right lower extremity and pulmonary embolism. Apparently this happened on September 2017. He is on Eliquis. I will continue with that. 6. Hypoxemic respiratory failure likely due to a combination of pneumonia and some pulmonary edema. Pulmonary Department on board. 7. Uncontrolled diabetes. Hemoglobin A1c upon admission was around 12.4. Will monitor. Sugar seems to be better. cc: Lonnie Babin MD
--- NOTE | 2019-08-22 20:05 | NEPHROLOGY PROGRESS NOTE ---
DATE: 08/22/2019 SUBJECTIVE: He states he is coughing and this kept him up last night. He is still requiring supplemental oxygen. OBJECTIVE: Blood pressure 132/87, heart rate 85, respirations 24, afebrile. Intake 1.1 L, output 2.9 L. On physical exam, no acute distress. Skin is warm and dry. Neck veins are not distended. Oropharynx is moist. Heart is regular. No gallops or murmurs. Lungs are equal. No crackles or wheezes. Abdomen soft, nontender. Bowel sounds present. Extremities: No edema, clubbing or cyanosis. IMPRESSION AND PLAN: Acute kidney injury. BUN is improved and creatinine is stable over the last 48 hours. Excellent urine output. Electrolytes/acid base/volume status all in target. Blood pressure in target. If he is otherwise ready for discharge, then he can have weekly labs and follow up with us in 2 weeks. I will arrange for this. cc: Shawn Gonzalez MD
[2019-08-23] MEDS: ZOSYN 2.25 GM in NS 50 ML IV SCH ×5 (00:23→23:31)
[2019-08-23] MEDS: CARAFATE LIQUID PO SCH ×4 (01:33→21:01)
--- NOTE | 2019-08-23 02:06 | PULMONOLOGY PROGRESS NOTE ---
DATE: 08/22/2019 SUBJECTIVE: The patient is awake, alert, and conversant. He reports he is slowly regaining some of his strength. OBJECTIVE: Vital Signs: The patient has been afebrile for the last 24 hours. Blood pressure 130/93, heart rate 91, respiratory rate 18, oxygen saturation 94% on 3 L per nasal cannula. HEENT: Pupils are equal and reactive. Oropharynx appears clear. Neck: Supple. Chest: Reveals crackles bilaterally. Cardiac: S1-S2. Abdomen: Soft. Extremities: Without edema. LABORATORIES: Microbiology reveals no new data. No chest x-ray today. No CBC today. Sodium 140, potassium 3.5, chloride 99, bicarbonate 24, BUN 14, creatinine 2.7. IMPRESSION: A 38-year-old with: 1. Influenzal pneumonia. 2. Acute hypoxemic respiratory failure. 3. Poorly controlled diabetes mellitus with a hemoglobin A1c greater than 12. 4. Acute renal failure. 5. Acute hypoxemic respiratory failure. PLAN: 1. Continue oxygen therapy. 2. Continue bronchial hygiene. 3. Agree with broad spectrum antibiotics. 4. Follow up chest x-ray tomorrow. cc: Geoffrey Jin MD
[2019-08-23] MEDS: DUONEB (A & A) INH SCH ×6 (03:41→23:13)
[2019-08-23] MEDS: HUMALOG SUBQ SCH ×4 (06:28→21:01)
--- NOTE | 2019-08-23 07:07 | Diag Imaging Result Doc PS360 ---
EXAM: CHEST-PORTABLE 08/23/2019 HISTORY: dyspnea TECHNIQUE: AP portable semiupright at 0507 COMMENT: There are patchy alveolar opacities particularly in the left costophrenic angle region. There has been some clearing of the right lateral base since the previous study of 08/21/2019. IMPRESSION: Pulmonary edema and/or pneumonia slightly improved. Electronically signed by Zak Singh 08/23/2019 7:05 AM
[2019-08-23 07:25] LABS: CALCIUM 8.7 mg/dL (8.8-10.2); CREATININE 2.7 mg/dL (0.7-1.2); POTASSIUM 3.5 mmol/L (3.5-5.1)
[2019-08-23] MEDS: CALTRATE 600 + D PO SCH ×2 (09:21→21:02)
[2019-08-23] MEDS: ELIQUIS PO SCH ×2 (09:21→21:02)
[2019-08-23] MEDS: PROTONIX IV SCH ×2 (09:21→21:02)
[2019-08-23] MEDS: TRESIBA FLEXTOUCH U-200 SUBQ SCH (09:26)
[2019-08-23] MEDS: ZYVOX 600 MG/D5W 600 MG/300 ML IVPB IV SCH ×2 (09:26→21:01)
--- NOTE | 2019-08-23 10:50 | PROGRESS NOTE ---
DATE: 08/23/2019 SUBJECTIVE: The patient is feeling better. I do not have any new lab work at this moment. He has been having good urine output and a reported negative balance of 458 mL. His urine output was 2 L. He is breathing better. He is still on oxygen. OBJECTIVE: Vital Signs: Temperature 99 degrees, pulse 90, respiratory rate 28, blood pressure 123/71. Oxygen saturation 95% on 2 L of nasal cannula. HEENT: Head normocephalic, no trauma. PERRLA. Neck: Supple. No JVD. Central trachea. Chest: Coarse breath sounds mostly at the bases with some crepitus at the bases and crackles at the bases as well. Abdomen: Soft, some tenderness to palpation. The patient at the level of the epigastric area. Positive bowel sounds. No distention. No hepatosplenomegaly. Extremities: No edema. No clubbing. No cyanosis. Neurological: The patient is alert and oriented x3. No focal deficits. LABORATORY: Pending lab work at this moment. ASSESSMENT AND PLAN: 1. Diabetic ketoacidosis, likely due to right lower lobe pneumonia and uncontrolled diabetes, medical noncompliance. His hemoglobin A1c upon admission was 12.4, he also has a positive influenza A, that has been already treated and apparently he recently had influenza B as well, treated. 2. Bilateral multilobar pneumonia. He is still requiring oxygen through a nasal cannula, now is around 2 to 4 L, he has been placed on Zyvox and Zosyn. He has a positive influenza A and he completed treatment with Tamiflu. Apparently, he had an episode of influenza B a few days ago. 3. Acute kidney injury. His urine output is still good. Pending lab work today. BUN and creatinine did not go up yesterday. 4. Positive influenza A, already treated with Tamiflu during this hospitalization. 5. 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 As per the patient this happened in September 2017. He is on Eliquis. I will continue with that. 6. Hypoxemic respiratory failure due to a combination of pneumonia and some pulmonary edema. Pulmonary Department on board. This is getting better. 7. Uncontrolled diabetes. Hemoglobin A1c upon admission was around 12.4. We will continue with the same management, I will increase a little bit his dose of insulin, back from 70 to 80 daily to see how he does. cc: Lonnie Babin MD MTDD
[2019-08-23] MEDS: MORPHINE IV PRN (21:36)
--- NOTE | 2019-08-24 00:56 | PULMONOLOGY PROGRESS NOTE ---
DATE: 08/23/2019 SUBJECTIVE: The patient is awake and alert. He reports he has had a pretty good day. He has been ambulatory, ambulating in his room. OBJECTIVE: Vital Signs: The patient has been afebrile for the last 24 hours. Blood pressure 130/71, heart rate 90, respiratory rate 18, oxygen saturation 95% on 2 L per nasal cannula. HEENT: Pupils are equal and reactive. Oropharynx appears clear. Neck: Supple. Chest: Reveals crackles in both lung bases. Cardiac: S1, S2. Abdomen: Soft with good bowel sounds. Extremities: Reveal trace edema. LABORATORIES: Chest x-ray reveals partial improvement in the retrocardiac area and the right base. IMPRESSION: A 38-year-old with: 1. Influenzae pneumonia. 2. Acute hypoxic respiratory failure. 3. Poorly controlled diabetes mellitus. 4. Acute hypoxemic respiratory failure. 5. Acute renal failure. PLAN: 1. Continue bronchial hygiene. 2. Continue antibiotics. 3. Continue oxygen therapy. 4. Follow up chest x-ray planned for Sunday. cc: Geoffrey Jin MD
[2019-08-24] MEDS: CARAFATE LIQUID PO SCH ×4 (03:06→19:59)
[2019-08-24] MEDS: DUONEB (A & A) INH SCH ×6 (03:39→23:23)
[2019-08-24] MEDS: ZOSYN 2.25 GM in NS 50 ML IV SCH ×4 (06:21→23:02)
[2019-08-24] MEDS: HUMALOG SUBQ SCH ×4 (06:23→21:06)
[2019-08-24 06:34] LABS: BASO# 0.02 X1000 (0.0-0.2); BASO% 0.2 % (0.0-0.8); EOS# 0.13 X1000 (0.0-0.7); EOS% 1.4 % (0.0-10.0); HEMATOCRIT 37.2 % (42.0-52.0); HEMOGLOBIN 11.9 g/dL (14.0-18.0); IMM GRAN# 0.05 X1000 (0.0-0.04); IMM GRAN% 0.5 % (0.0-0.5); LYMPH# 1.15 X1000 (1.2-3.4); LYMPH% 12.2 % (20.5-51.1); MCH 28.1 PG (27-31); MCV 87.7 FL (81-99); MONO# 1.24 X1000 (0.11-0.59); MONO% 13.2 % (1.7-9.3); MPV 9.7 FL (7.4-10.4); NEUT# 6.82 X1000 (1.4-6.5); NEUT% 72.5 % (42.2-75.2); PLT 388 X1000 (130-400); RBC 4.24 XMIL (4.7-6.1); RDW 12.6 % (11.5-14.5); WBC 9.41 X1000 (4.8-10.8)
[2019-08-24 07:07] LABS: CALCIUM 8.8 mg/dL (8.8-10.2); CREATININE 2.6 mg/dL (0.7-1.2); POTASSIUM 3.6 mmol/L (3.5-5.1)
[2019-08-24] MEDS: PROTONIX IV SCH ×2 (08:13→23:02)
[2019-08-24] MEDS: ELIQUIS PO SCH ×2 (08:13→21:06)
[2019-08-24] MEDS: CALTRATE 600 + D PO SCH ×2 (08:13→21:00)
[2019-08-24] MEDS: ZYVOX 600 MG/D5W 600 MG/300 ML IVPB IV SCH ×2 (08:14→19:59)
--- NOTE | 2019-08-24 09:08 | PROGRESS NOTE ---
DATE: 08/24/2019 SUBJECTIVE: This patient is resting comfortably in bed. No acute events overnight. We have a urine output of 2350 mL. We will continue with the same management for now. Creatinine is getting better slowly. Yesterday, I increased the dose of the insulin degludec to 80. Let us see how he does. OBJECTIVE: Vital Signs: Temperature 99.2 degrees, pulse 89, respiratory rate 24, blood pressure 147/89, oxygen saturation 95% on 2 L of nasal cannula. HEENT: Head normocephalic. No trauma. PERRLA. Neck: Supple. No JVD. No masses. Central trachea. Chest: Coarse breath sounds at the bases, with crepitus at the bases and crackles at the bases as well. Abdomen: Soft. Some tenderness to palpation at the level of the epigastric area. Positive bowel sounds. Nondistended. No hepatosplenomegaly. Extremities: No edema, no clubbing, no cyanosis. Neurological: The patient is alert and oriented x3. No focal deficits. ASSESSMENT AND PLAN: 1. Diabetic ketoacidosis, resolved, likely due to right lower lobe pneumonia and uncontrolled diabetes, medical noncompliance. Hemoglobin A1c upon admission was 12.4. He also has a positive influenza A, already treated, and apparently he recently had an influenza B treated as well a few days ago. 2. Bilateral multilobar pneumonia. Continue with antibiotics. 3. Influenza pneumonia, type A. Already treated. Continue with the same management, oxygen supplementation. 4. 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 Apparently, this happened in 09/2017. He is on Eliquis. I will continue with the same management. 5. Hypoxemic respiratory failure due to a combination of pneumonia and pulmonary edema. This is getting better. Pulmonary Department on board. 6. Uncontrolled diabetes. His hemoglobin A1c upon admission was around 12.4. Will continue with the same treatment. I have increased his dose of insulin from 70 to 80 to see how he does. cc: Lonnie Babin MD
[2019-08-24] MEDS: TRESIBA FLEXTOUCH U-200 SUBQ SCH (09:20)
[2019-08-24] MEDS: TYLENOL PO PRN (11:37)
[2019-08-24] MEDS ORDERED: INSULIN PEN NEEDLES ONE (16:15)
[2019-08-24] MEDS: MORPHINE IV PRN (19:58)
[2019-08-25] MEDS: CARAFATE LIQUID PO SCH ×2 (01:38→08:08)
--- NOTE | 2019-08-25 01:52 | PULMONOLOGY PROGRESS NOTE ---
DATE: 08/24/2019 SUBJECTIVE: The patient is awake, alert, and conversant. He reports he feels better. OBJECTIVE: Vital Signs: The patient has been afebrile for the last 24 hours. Blood pressure 156/92, heart rate 77, respiratory rate 16, oxygen saturation 96%. HEENT: Pupils are equal and reactive. Oropharynx appears clear. Neck: Supple. Chest: Reveals decreased breath sounds in the lung bases. Cardiac: S1-S2. Abdomen: Soft and without hepatosplenomegaly. Extremities: Reveal trace edema. LABORATORIES: Sodium 137, potassium 3.6, chloride 97, bicarbonate 26, BUN 16, creatinine 2.6. White blood count 9.41, hemoglobin 11.9, platelet count 388,000. IMPRESSION: A 38-year-old with: 1. Influenzal pneumonia. 2. Acute hypoxemic respiratory failure. 3. Acute renal failure. 4. Poorly controlled diabetes mellitus with a hemoglobin A1c greater than 12. RECOMMENDATIONS: 1. Continue bronchial hygiene. 2. Continue antibiotics. 3. Wean oxygen as tolerated per O2 protocol. 4. Obtain 2-view chest x-ray tomorrow. cc: Geoffrey Jin MD
[2019-08-25] MEDS: DUONEB (A & A) INH SCH ×3 (03:19→12:11)
[2019-08-25] MEDS: ZOSYN 2.25 GM in NS 50 ML IV SCH ×2 (05:26→12:00)
[2019-08-25 05:52] LABS: CALCIUM 8.8 mg/dL (8.8-10.2); CREATININE 2.6 mg/dL (0.7-1.2); POTASSIUM 3.6 mmol/L (3.5-5.1)
[2019-08-25] MEDS: HUMALOG SUBQ SCH ×2 (06:12→11:58)
--- NOTE | 2019-08-25 07:38 | Diag Imaging Result Doc PS360 ---
EXAM: CHEST-2 VIEWS INDICATION: abnormal exam TECHNIQUE: 2 views COMPARISON: 08/23/2019 FINDINGS: Interstitial and airspace infiltrates seen bilaterally are approximately stable given differences in inspiration. No new consolidation is identified. Cardiac silhouette is stable. IMPRESSION: Stable chest. Electronically signed by Greyson Johnston 08/25/2019 7:36 AM
[2019-08-25] MEDS: ZYVOX 600 MG/D5W 600 MG/300 ML IVPB IV SCH (08:07)
[2019-08-25] MEDS: PROTONIX IV SCH (08:08)
[2019-08-25] MEDS: ELIQUIS PO SCH (08:08)
[2019-08-25] MEDS: TRESIBA FLEXTOUCH U-200 SUBQ SCH (08:08)
[2019-08-25] MEDS: CALTRATE 600 + D PO SCH (08:08)
--- NOTE | 2019-08-25 10:24 | NEPHROLOGY PROGRESS NOTE ---
DATE: 08/25/2019 SUBJECTIVE: Patient is sitting up in bed. He has been able to eat. He has no complaints this morning. OBJECTIVE: Vital Signs: Temperature 97.5 degrees, pulse 85, respiratory rate 17, blood pressure 125/75. Intake 1.6 L; output 2.5 L of voided urine. PHYSICAL EXAMINATION: General: Middle-aged gentleman resting in bed. No acute distress. HEENT: Normocephalic, atraumatic. ANUJA. Oral mucosa moist. Neck: Supple without JVD. Cardiovascular: Regular rate and rhythm. No murmur. Pulmonary: He is clear bilaterally. Abdomen: Soft, with positive bowel sounds. : Voiding. Extremities: No clubbing, cyanosis, or edema. Integumentary: Skin is warm and dry. LAB DATA: Sodium 135, potassium 3.6, CO2 25. BUN 18 creatinine 2.6 (2.6, 2.7). ASSESSMENT AND PLAN: 1. Acute kidney injury with stability to improvement. Urine output has picked up significantly over the last 24 to 48 hours. The patient has no indications for intervention. Otherwise, will continue to monitor closely. I did speak to him that he would need a follow up appointment in our office a couple weeks after his discharge with labs in the interim. Patient is in agreement. 2. Electrolytes acid-base balance, anemia. These are stable. 3. Hypertension, controlled. 4. Fluid volume. He is euvolemic. 5. Influenza pneumonia, improving. Dictated by JAYLEN Lyn for Shawn Gonzalez MD Face to face encounter, data reviewed, discussed with Anuel Dixon on 08/25/19. I agree with the above assessment and plan of care. cc: MD TODD Solis
[2019-08-25 12:45] VITALS: BP 139/88
--- NOTE | 2019-08-26 19:17 | DISCHARGE SUMMARY ---
ADMISSION DATE: 08/15/2019 DISCHARGE DATE: 08/25/2019 DISCHARGE DIAGNOSES: 1. Diabetic ketoacidosis, resolved. 2. Bilateral multilobar pneumonia. 3. Influenza type A. 4. 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 Apparently in September 2017, on Eliquis. 5. Hypoxemic respiratory failure due to a combination of pneumonia and pulmonary edema. 6. Uncontrolled diabetes. PROCEDURES PERFORMED: 1. Chest x-ray dated 08/15/2019 with impression of ill-defined infiltrate or atelectasis at the right base. 2. Chest x-ray dated 08/16/2019 with impression of interval worsening. 3. Chest CT scan dated 08/17/2019 with impression of hazy bilateral infiltrates. They are suspicious for pneumonia. Other consideration might include pulmonary edema and pulmonary hemorrhage, tiny bilateral pleural effusions. 4. Renal ultrasound dated 08/20/2019 with impression of enlarged hyperechoic kidneys consistent with medical renal disease, the possibility of acute inflammation cannot be excluded. 5. Chest x-ray dated 08/20/2019 with impression of improved atelectasis or pneumonia in both lung bases. 6. Chest x-ray dated 08/21/2019 with impression of mild interval worsening. 7. Chest x-ray dated 08/23/2019 with impression of pulmonary edema and/or pneumonia is slightly improved. 8. Chest x-ray dated 08/25/2019 with impression of stable chest. CONSULTATIONS: 1. Pulmonary Department Dr. Bal. 2. Gastroenterology Department, Dr. Bishop. 3. Nephrology Department Dr. Gonzalez. HOSPITAL COURSE: A 38-year-old male with a past medical history of diabetes, presented with several days of generalized muscle pain, fever, nausea and vomiting. He was admitted on 08/15/2019, apparently was initially tested for influenza B a week before admission in [place] and he took Tamiflu, Tylenol, and Motrin. He returned to [place] for work and apparently he was not getting better despite taking medication. For the past four days he stated that he was unable to get out of bed and he has not taken his insulin. He also has a history of DVT and pulmonary embolus and he takes Eliquis twice a day. On arrival to the emergency department he had initial laboratory data obtained that showed that the patient had DKA. He stated that he has been in DKA before. His influenza screen was positive for influenza A and his x-ray showed right lower lobe infiltrate. He was admitted to the ICU. He was placed in the DKA protocol. We continued with his home medications, including Eliquis. He was placed on antibiotics and also Tamiflu. We consulted Pulmonary Department to see and monitor this patient and we basically continued with supplemental oxygen. Also because of his abdominal pain and epigastric pain that basically was not getting better we consulted the Gastroenterology Department and he was placed on treatment with proton pump inhibitors and also Carafate. We did a CT scan that showed hazy bilateral infiltrates suspicious for pneumonia but also other considerations might include pulmonary edema or pulmonary hemorrhage, tiny bilateral pleural effusion. This patient was placed on broad spectrum antibiotics and also he started having acute kidney injury, but even though his BUN and creatinine were elevated, his urine output always has been stable. Nephrology Department evaluated this patient and they will continue to monitor this patient as an outpatient with frequent lab work as an outpatient as well. The patient is feeling much better today. We asked Respiratory Therapy to evaluate this patient and they state that this patient desaturates on room air, 86 at room air, so this patient will be discharged with oxygen. Also his blood sugar has been elevated, so I have increased his dose of insulin. Today this patient seems to be doing much better. He will be discharged home with followup with Nephrology Department and with Dr. Bal on 08/28/2019 at 1:30 p.m. and with Nephrology Department in a couple weeks. PHYSICAL EXAMINATION: Vital Signs: Temperature 98.3 degrees, pulse 80, respiratory rate 20, blood pressure 139/88, oxygen saturation 92 on 2 L of nasal cannula. HEENT: Head normocephalic, no trauma. PERRLA. Neck: Supple. No JVD. No masses. Central trachea. Chest: Coarse breath sounds bilaterally with some crepitus at the bases. Abdomen: Soft. Mild tenderness to palpation at the level of the epigastric area. Positive bowel sounds. No distention. No hepatosplenomegaly. Extremities: No edema. No clubbing. No cyanosis. Neurological: The patient is alert and oriented x3. No focal deficits. LABORATORY: Sodium 135, potassium 3.6, chloride 95, bicarbonate 25, BUN 18, creatinine 2.6, glucose 188, calcium 8.8. DISCHARGE MEDICATIONS: 1. Acetaminophen 650 mg p.o. every 4 hours as needed for pain and/or fever. 2. Albuterol sulfate inhaler two puffs inhaled four times a day as needed for shortness of breath. 3. Augmentin 875 mg/125 mg tablet p.o. b.i.d. to complete 14 days. 4. Eliquis 5 mg p.o. b.i.d. 5. Tessalon 100 mg p.o. t.i.d. as needed for cough. 6. Insulin degludec 80 units subcutaneous daily. 7. Omeprazole 20 mg p.o. daily. 8. Carafate 1 gram p.o. four times a day. Everything has been explained to the patient. He will follow with Pulmonary Department and Nephrology Department. I discussed the case with both of the specialties. TIME SPENT: Time spent discharging this patient 35 minutes. cc: Lonnie Babin MD
== END 2019-08-25 13:32 | disposition home or self-care (01) | DRG 637 ==
LOC: ED 18:26 → ICU 23:18 → SUATTDRO 23:18 → 2N 08-17 18:51 → 1N 08-24 11:07
PROVIDERS: ATTEND Internal Medicine